=== PATIENT | female | born 1945 | race Caucasian/White ===

== ENCOUNTER → 2016-08-30 | Outpatient (CLI) | payer MEDICARE | LOC: OD 13:03 | PROVIDERS: ATTEND Internal Medicine | DX: E53.9 Vitamin B deficiency, unspecified (principal) | CPT/HCPCS: 36415; 82607 ==

== ENCOUNTER → 2016-12-15 | Outpatient (CLI) | payer MEDICARE ==
[2016-12-15 11:20] LABS: ABSOLUTE BASOPHILS # (AUTO) 0.1 10^3/uL (0.0-0.2); ABSOLUTE EOSINOPHILS # (AUTO) 0.5 10^3/uL (0.0-0.6); ABSOLUTE LYMPHOCYTES (AUTO) 3.1 10^3/uL (0.5-4.7); ABSOLUTE MONOCYTES (AUTO) 0.6 10^3/uL (0.1-1.4); BASOPHILS % (AUTO) 0.8 % (0-2); EOSINOPHILS % (AUTO) 4.5 % (0-6); HEMATOCRIT 37.9 % (36.0-47.0); HEMOGLOBIN 12.7 g/dL (12.0-15.5); HGB HCT DIFFERENCE 0.2; LYMPHOCYTES % (AUTO) 29.9 % (13-45); MEAN CORPUSCULAR HEMOGLOBIN 30.2 pg (27.0-33.4); MEAN CORPUSCULAR HGB CONC 33.5 g/dL (32.0-36.0); MEAN CORPUSCULAR VOLUME 90 fl (80-97); RED BLOOD COUNT 4.22 10^6/uL (3.72-5.28); SEGMENTED NEUTROPHILS % (AUTO) 58.8 % (42-78); WHITE BLOOD COUNT 10.3 10^3/uL (4.0-10.5)
[2016-12-15 12:09] LABS: ERYTHROCYTE SEDIMENTATION RATE 24 mm/hr (0-30)
[2016-12-15 12:34] LABS: C-REACTIVE PROTEIN < 5.0 mg/L (<10.0)
[2016-12-22 13:40] LABS: HLA B 27 DISEASE ASSOCIATION Negative (.)
== END ==
LOC: OD 10:09
PROVIDERS: ATTEND Physician Assistant
DX: M25.50 Pain in unspecified joint (principal); G89.4 Chronic pain syndrome
CPT/HCPCS: 36415; 82607; 82652; 85025; 85652; 86038; 86140; 86430; 86812

== ENCOUNTER → 2017-12-28 | Outpatient (CLI) | payer MEDICARE ==
[2017-12-28 12:12] LABS: ALANINE AMINOTRANSFERASE 39 U/L (9-52); ALBUMIN 4.6 g/dL (3.5-5.0); ALKALINE PHOSPHATASE 80 U/L (38-126); ASPARTATE AMINO TRANSFERASE 29 U/L (14-36); BILIRUBIN,DIRECT 0.5 mg/dL (0.0-0.4); BILIRUBIN,TOTAL 0.5 mg/dL (0.2-1.3); CHOLESTEROL 308.26 mg/dL (0-200); TOTAL PROTEIN 7.7 g/dL (6.3-8.2); TRIGLYCERIDES 453 mg/dL (<150)
[2017-12-28 12:23] LABS: DIRECT LDL 143 mg/dL (<100)
== END ==
LOC: OD 10:54
PROVIDERS: ATTEND Specialist
DX: I10 Essential (primary) hypertension (principal); E78.5 Hyperlipidemia, unspecified; R01.1 Cardiac murmur, unspecified; K21.9 Gastro-esophageal reflux disease without esophagitis; F33.0 Major depressive disorder, recurrent, mild; F41.9 Anxiety disorder, unspecified; G89.4 Chronic pain syndrome; I35.1 Nonrheumatic aortic (valve) insufficiency; Z79.899 Other long term (current) drug therapy
CPT/HCPCS: 36415; 80061; 80076

== ENCOUNTER 2018-08-26 20:34 | Inpatient (IN) | payer MEDICARE ==
[2018-08-26 21:53] LABS: ABSOLUTE LYMPHOCYTES (AUTO) 1.1 10^3/uL (0.5-4.7); ABSOLUTE MONOCYTES (AUTO) 2.3 10^3/uL (0.1-1.4); ABSOLUTE NEUT (AUTO) 16.3 10^3/uL (1.7-8.2); BASOPHILS % (AUTO) 0.2 % (0-2); HEMOGLOBIN 13.3 g/dL (12.0-15.5); LYMPHOCYTES % (AUTO) 5.5 % (13-45); MEAN CORPUSCULAR HEMOGLOBIN 28.6 pg (27.0-33.4); MEAN CORPUSCULAR VOLUME 84 fl (80-97); MONOCYTES % (AUTO) 11.6 % (3-13); PLATELET COUNT 361 10^3/uL (150-450); RED BLOOD COUNT 4.63 10^6/uL (3.72-5.28); RED CELL DISTRIBUTION WIDTH 13.8 % (11.5-14.0); SEGMENTED NEUTROPHILS % (AUTO) 82.7 % (42-78); TOTAL CELLS COUNTED % (AUTO) 100 %; WHITE BLOOD COUNT 19.7 10^3/uL (4.0-10.5)
[2018-08-26 22:02] LABS: ALANINE AMINOTRANSFERASE 21 U/L (9-52); ALBUMIN 4.6 g/dL (3.5-5.0); ALKALINE PHOSPHATASE 92 U/L (38-126); ANION GAP 13 (5-19); ASPARTATE AMINO TRANSFERASE 21 U/L (14-36); BILIRUBIN,DIRECT 0.4 mg/dL (0.0-0.4); BILIRUBIN,TOTAL 0.7 mg/dL (0.2-1.3); BLOOD UREA NITROGEN 20 mg/dL (7-20); CALCIUM 9.8 mg/dL (8.4-10.2); CARBON DIOXIDE 26 mmol/L (22-30); CHLORIDE 95 mmol/L (98-107); CREATINE KINASE 63 U/L (30-135); GLUCOSE 129 mg/dL (75-110); LIPASE 23.2 U/L (23-300); POTASSIUM 4.6 mmol/L (3.6-5.0); SODIUM 134.3 mmol/L (137-145); TOTAL PROTEIN 7.4 g/dL (6.3-8.2)
[2018-08-26 22:14] LABS: CREATINE KINASE MB < 0.22 ng/mL (<4.55); TROPONIN I < 0.012 ng/mL
--- NOTE | 2018-08-26 22:27 | RADIOLOGY REPORT (SQ) ---
EXAM DESCRIPTION: XR CHEST 1 VIEW COMPLETED DATE/TME: 08/26/2018 21:26 CLINICAL HISTORY: 73 years, Female, SOB, epigastric abdominal pain COMPARISON: 10/14/2015 chest NUMBER OF VIEWS: 1 TECHNIQUE: Portable chest LIMITATIONS: None. FINDINGS: The heart size is normal. Elevation right hemidiaphragm. Scarring left lung base. Old right rib fractures. No pneumothorax. Lungs are otherwise clear IMPRESSION: No acute cardiopulmonary process copyright 2010 [employer]- All Rights Reserved
[2018-08-26] MEDS ORDERED: HYDROMORPHONE HCL INJ/PF 2 MG/ML AMPULE IV ONE (22:47)
--- NOTE | 2018-08-27 00:03 | RADIOLOGY REPORT (SQ) ---
EXAM DESCRIPTION: CT ABDOMEN PELVIS WITH IV CONTRAST COMPLETED DATE/TME: 08/26/2018 23:11 CLINICAL HISTORY: 73 years, Female, diffuse abd pain COMPARISON: 10/15/2015 CT TECHNIQUE: [id number] Images stored on PACS. All CT scanners at this facility use dose modulation, iterative reconstruction, and/or weight based dosing when appropriate to reduce radiation dose to as low as reasonably achievable (ALARA). [facility]: Dose Right [facility]: CareDose [facility]: Dose Right [facility]: Teradose 4D [facility]: [employer] LIMITATIONS: None. FINDINGS: Limited evaluation of the lung bases shows scarring in the posterior right lung base. Osseous structures are grossly intact. The liver, spleen, adrenal glands, pancreas, right kidney are unremarkable. Left perinephric inflammatory changes with heterogeneity of the left kidney concerning for pyelonephritis. The gallbladder is present. No gross evidence for bowel obstruction. No free air or free fluid. The appendix is not well seen however there is no pericecal inflammation to suggest acute appendicitis. IMPRESSION: Findings concerning for left-sided pyelonephritis. Correlate with patient history. TECHNICAL DOCUMENTATION: Quality ID # 436: Final reports with documentation of one or more dose reduction techniques (e.g., Automated exposure control, adjustment of the mA and/or kV according to patient size, use of iterative reconstruction technique) copyright 2011 [id number]- All Rights Reserved
[2018-08-27 00:08] LABS: APPEARANCE,URINE SLIGHTLY-CLOUDY; BILIRUBIN,URINE NEGATIVE (NEGATIVE); COLOR,URINE YELLOW; GLUCOSE, URINE NEGATIVE (NEGATIVE); KETONES,URINE TRACE mg/dL (NEGATIVE); LEUKOCYTE ESTERASE,URINE NEGATIVE (NEGATIVE); NITRITE,URINE NEGATIVE (NEGATIVE); PROTEIN,URINE 100 mg/dL (NEGATIVE); URINE SPECIFIC GRAVITY 1.014
[2018-08-27] MEDS ORDERED: CEFTRIAXONE 1 GM/D5W RTU 1 GM/50 ML RTUPB IV ONE (00:21)
[2018-08-27] MEDS ORDERED: ACETAMINOPHEN 325 MG TABLET PO ONE (00:22)
[2018-08-27] MEDS ORDERED: MAGNESIUM HYDROXIDE SUSP 30 ML UDCUP PO PRN (00:57)
[2018-08-27] MEDS ORDERED: IPRATROPIUM/ALBUTEROL 0.5-2.5 MG/3 ML AMPUL NEB PRN (00:57)
[2018-08-27] MEDS ORDERED: NORMAL SALINE 1000 ML 1,000 ML IV PRN (01:00)
--- NOTE | 2018-08-27 01:01 | ER Document Report ---
Entered by SHON MAYNARD SCRIBE 08/26/[id number] Acting as scribe for:ANNA GODOY DO ED General - General Chief Complaint: Shortness Of Breath Stated Complaint: FEVER Time Seen by Provider: 08/26/18 21:00 Primary Care Provider: TEZ CAMPOS MD [Primary Care Provider] - Follow up as needed Mode of Arrival: Ambulatory Information source: Patient Notes: Patient is a 71-year-old female with HTN, COPD presents to the emergency departm ent complaining of epigastric abdominal pain onset yesterday. Patient states that she went to urgent care yesterday complaining of abdominal pain and shortness of breath they directed her to come to the emergency department in suspicion of pancreatitis. Patient states that she has had pancreatitis before and that her current pain feels similar but not as severe. Patient states her pain radiates into her back and further complains of decreased appetite, diarrhea (1 episode today) and nausea. She describes her shortness of breath as not being able to take an adequate breath. She denies any abdominal surgeries. They did prescribe her Zofran and Levaquin. Patient is not sure what they were treating. TRAVEL OUTSIDE OF THE [place] IN LAST 30 DAYS: No - Related Data Allergies/Adverse Reactions: No Known Allergies Allergy (Verified 04/17/13 10:58) Past Medical History - General Information source: Patient - Social History Smoking Status: Never Smoker Chew tobacco use (# tins/day): No Frequency of alcohol use: None Drug Abuse: None Family History: Reviewed & Not Pertinent Patient has suicidal ideation: No Patient has homicidal ideation: No - Past Medical History Cardiac Medical History: Reports: Hx Hypercholesterolemia, Hx Hypertension Psychiatric Medical History: Reports: Hx Anxiety, Hx Depression - Immunizations Hx Diphtheria, Pertussis, Tetanus Vaccination: Yes Hx Pneumococcal Vaccination: 08/06/11 Review of Systems - Review of Systems Constitutional: No symptoms reported EENT: No symptoms reported Cardiovascular: No symptoms reported Respiratory: See HPI, Short of breath Gastrointestinal: No symptoms reported, Abdominal pain, Diarrhea, Nausea Genitourinary: No symptoms reported Female Genitourinary: No symptoms reported Musculoskeletal: See HPI Skin: No symptoms reported Hematologic/Lymphatic: No symptoms reported Neurological/Psychological: No symptoms reported Physical Exam - Vital signs Vitals: Resp Pulse Ox 21 H 92 08/26/18 20:45 08/26/18 20:45 - Notes Notes: GENERAL: Alert, interacts well. Febrile, appears mildly uncomfortable HEAD: Normocephalic, atraumatic. EYES: Pupils equal, round, and reactive to light. Extraocular movements intact. ENT: Oral mucosa moist, tongue midline. NECK: Full range of motion. Supple. Trachea midline. LUNGS: Crackles in the bilateral bases and mid 3rd lung zone on the right. No respiratory distress. HEART: Regular rate and rhythm. No murmurs, gallops, or rubs. ABDOMEN: Soft, diffuse tenderness to palpation. Positive Vasquez's sign. Non- distended. Bowel sounds present in all 4 quadrants. EXTREMITIES: Moves all 4 extremities spontaneously. No edema, radial and dorsalis pedis pulses 2/4 bilaterally. No cyanosis. NEUROLOGICAL: Alert and oriented x3. Normal speech. PSYCH: Normal affect, normal mood. SKIN: Warm, dry, normal turgor. No rashes or lesions noted. BACK: No bruising. Course - Re-evaluation Re-evalutation: 08/27/18 00:59 CBC shows leukocytosis of 19.7, CMP shows slightly low GFR otherwise unremarkable, cardiac enzymes negative, lipase normal, urinalysis shows trace ketones and small blood but no signs of infection however she did start taking Levaquin yesterday. Chest x-ray shows old right rib fractures but no acute cardiopulmonary process, CT scan of the abdomen pelvis shows left-sided perinephric stranding consistent with pyelonephritis. Given her fever, her leukocytosis and her CAT scan results I suspect that she does truly have py elonephritis and her urine is negative because she has already had 1-2 doses of Levaquin. Patient will be admitted for IV Rocephin, discussed with Dr. Sotelo and he is in agreement with the plan, we are sending a second urine in case there was any problem with labeling in the emergency department or in the lab. - Vital Signs Vital signs: Temp Pulse Resp BP Pulse Ox 102.4 F H 17 139/58 H 92 08/27/18 00:19 08/27/18 00:01 08/27/18 00:01 08/27/18 00:01 - Laboratory Result Diagrams: 08/26/18 21:02 08/26/18 21:02 Laboratory results interpreted by me: 08/26/18 08/26/1819 21:02 21:02 23:39 WBC 19.7 H Seg Neutrophils % 82.7 H Lymphocytes % 5.5 L Absolute Neutrophils 16.3 H Absolute Monocytes 2.3 H Sodium 134.3 L Chloride 95 L Est GFR (Non-Af Amer) 52 L Glucose 129 H Urine Protein 100 H Urine Ketones TRACE H Urine Blood SMALL H Urine Urobilinogen 4.0 H Discharge - Discharge Clinical Impression: Pyelonephritis Condition: Fair Disposition: ADMITTED INPATIENT Admitting Provider: [facility] Admitted: Telemetry Referrals: TEZ CAMPOS MD [Primary Care Provider] - Follow up as needed Scribe Attestation: 08/27/18 01:00 I personally performed the services described in the documentation, reviewed and edited the documentation which was dictated to the scribe in my presence, and it accurately records my words and actions. I personally performed the services described in the documentation, reviewed and edited the documentation which was dictated to the scribe in my presence, and it accurately records my words and actions.
[2018-08-27] MEDS ORDERED: SULFAMETHOX/TRIMETH 800-160 MG/10 ML VIAL IV PRN (01:10)
--- NOTE | 2018-08-27 04:23 | PDOC H&P ---
History of Present Illness Admission Date/PCP: 08/27/18 01:11 TEZ CAMPOS MD Patient complains of: Right-sided abdominal pain History of Present Illness: BONILLA VAZQUEZ is a 73 year old female with a past medical history of hypertension, COPD, recurrent C. difficile colitis who presents with 48 hours of abdominal pain prompting evaluation at urgent care she was placed on Levaquin for urinary tract infection without significant improvement she reports the emergency room findings leukocytosis and a CT abdomen pelvis notable for right- sided perinephric stranding suggestive of pyelonephritis. She is started on Rocephin and referred to the hospitalist for admission. Patient admits subjective fever, abdominal pain, polyuria and a single episode of diarrhea. Past Medical History Cardiac Medical History: Reports: Hyperlipidema, Hypertension Neurological Medical History: Denies: Seizures Psychiatric Medical History: Reports: Depression Past Surgical History Past Surgical History: Denies: Hysterectomy Social History Information Source: Patient Lives with: Family Smoking Status: Never Smoker Frequency of Alcohol Use: None Hx Recreational Drug Use: No Drugs: None Hx Prescription Drug Abuse: No - Advance Directive Resuscitation Status: Full Code Family History Family History: Hypertension Parental Family History Reviewed: Yes Children Family History Reviewed: Yes Sibling(s) Family History Reviewed.: Yes Medication/Allergy Home Medications: Hydrocodone Bit/Acetaminophen [Hydrocodon-Acetaminophen 5-325] 2 each PO Q4H PRN 04/17/13 Potassium Chloride 10 meq PO BID 04/17/13 Fesoterodine Fumarate [Toviaz] 4 mg PO DAILY 09/08/15 Lisinopril 40 mg PO DAILY 09/08/15 Alprazolam [Xanax 0.25 mg Tablet] 0.25 mg PO Q8HP PRN #0 tablet 09/12/15 Amlodipine Besylate [Norvasc 5 mg Tablet] 5 mg PO Q12 #0 tablet 09/12/15 Citalopram Hydrobromide [Celexa 20 mg Tablet] 20 mg PO DAILY #0 tablet 09/12/15 Simvastatin [Zocor 5 mg Tablet] 5 mg PO DAILY 10/15/15 Metronidazole [Flagyl 500 mg Tablet] 500 mg PO Q6 #0 tablet 10/27/15 Allergies/Adverse Reactions: No Known Allergies Allergy (Verified 04/17/13 10:58) Review of Systems Constitutional: ABSENT: chills, fever(s), headache(s), weight gain, weight loss Eyes: ABSENT: visual disturbances Ears: ABSENT: hearing changes Cardiovascular: ABSENT: chest pain, dyspnea on exertion, edema, orthropnea, palpitations Respiratory: ABSENT: cough, hemoptysis Gastrointestinal: ABSENT: abdominal pain, constipation, diarrhea, hematemesis, hematochezia, nausea, vomiting Genitourinary: ABSENT: dysuria, hematuria Musculoskeletal: ABSENT: joint swelling Integumentary: ABSENT: rash, wounds Neurological: ABSENT: abnormal gait, abnormal speech, confusion, dizziness, focal weakness, syncope Psychiatric: ABSENT: anxiety, depression, homidical ideation, suicidal ideation Endocrine: ABSENT: cold intolerance, heat intolerance, polydipsia, polyuria Hematologic/Lymphatic: ABSENT: easy bleeding, easy bruising Physical Exam Vital Signs: Temp Pulse Resp BP Pulse Ox 98.3 F 13 125/59 L 94 08/27/18 02:31 08/27/18 03:01 08/27/18 03:01 08/27/18 03:01 Intake & Output 08/25/18 08/26/18 08/27/18 11:59 11:59 11:59 Intake Total 1050 Balance 1050 Weight 63.957 kg General appearance: PRESENT: mild distress, well-developed, well-nourished Head exam: PRESENT: atraumatic, normocephalic Eye exam: PRESENT: conjunctiva pink, EOMI, PERRLA. ABSENT: scleral icterus Ear exam: PRESENT: normal external ear exam Mouth exam: PRESENT: moist, tongue midline Neck exam: ABSENT: carotid bruit, JVD, lymphadenopathy, thyromegaly Respiratory exam: PRESENT: tachypnea. ABSENT: rales, rhonchi, wheezes Cardiovascular exam: PRESENT: RRR. ABSENT: diastolic murmur, rubs, systolic murmur Pulses: PRESENT: normal dorsalis pedis pul Vascular exam: PRESENT: normal capillary refill GI/Abdominal exam: PRESENT: hyperactive bowel sounds, normal bowel sounds, soft, tenderness - Right flank pain. ABSENT: distended, guarding, mass, organolmegaly, rebound Rectal exam: PRESENT: deferred Extremities exam: PRESENT: full ROM. ABSENT: calf tenderness, clubbing, pedal edema Neurological exam: PRESENT: alert, awake, oriented to person, oriented to place, oriented to time, oriented to situation, CN II-XII grossly intact. ABSENT: motor sensory deficit Psychiatric exam: PRESENT: appropriate affect, normal mood. ABSENT: homicidal ideation, suicidal ideation Skin exam: PRESENT: dry, intact, warm. ABSENT: cyanosis, rash Results Laboratory Results: 08/26/18 21:02 08/26/18 21:02 08/26/18 08/26/18 08/26/18 21:02 21:02 23:39 WBC 19.7 H RBC 4.63 Hgb 13.3 Hct 39.0 MCV 84 MCH 28.6 MCHC 34.0 RDW 13.8 Plt Count 361 Seg Neutrophils % 82.7 H Lymphocytes % 5.5 L Monocytes % 11.6 Eosinophils % 0.0 Basophils % 0.2 Absolute Neutrophils 16.3 H Absolute Lymphocytes 1.1 Absolute Monocytes 2.3 H Absolute Eosinophils 0.0 Absolute Basophils 0.0 Sodium 134.3 L Potassium 4.6 Chloride 95 L Carbon Dioxide 26 Anion Gap 13 BUN 20 Creatinine 1.05 Est GFR ( Amer) > 60 Est GFR (Non-Af Amer) 52 L Glucose 129 H Calcium 9.8 Total Bilirubin 0.7 AST 21 ALT 21 Alkaline Phosphatase 92 Total Protein 7.4 Albumin 4.6 Lipase 23.2 Urine Color YELLOW Urine Appearance SLIGHTLY-CLOUDY Urine pH 6.0 Ur Specific [place] 1.014 Urine Protein 100 H Urine Glucose (UA) NEGATIVE Urine Ketones TRACE H Urine Blood SMALL H Urine Nitrite NEGATIVE Ur Leukocyte Esterase NEGATIVE Urine WBC (Auto) 16 Urine RBC (Auto) 3 08/26/18 08/26/18 21:02 21:02 Creatine Kinase 63 CK-MB (CK-2) < 0.22 Troponin I < 0.012 Impressions: Chest X-Ray 08/26/18 21:26 IMPRESSION: No acute cardiopulmonary process copyright 2011 [employer]- All Rights Reserved Abdomen/Pelvis CT 08/26/18 23:11 IMPRESSION: Findings concerning for left-sided pyelonephritis. Correlate with patient history. TECHNICAL DOCUMENTATION: Quality ID # [id number]: Final reports with documentation of one or more dose reduction techniques (e.g., Automated exposure control, adjustment of the mA and/or kV according to patient size, use of iterative reconstruction technique) copyright 2011 [employer]- All Rights Reserved Assessment & Plan - Diagnosis (1) Pyelonephritis Is this a current diagnosis for this admission?: Yes Plan: No evidence for hydronephrosis or stone. IV fluid challenge, patient has a history of Klebsiella pneumonia sensitive to Bactrim. Bactrim ordered given reduced probability of developing C. difficile colitis. Follow-up urine, blood culture and CBC (2) History of Clostridium difficile colitis Is this a current diagnosis for this admission?: Yes Plan: High risk for redevelopment on antibiotics especially following Levaquin and Rocephin. Follow-up CBC and C. difficile screen
[2018-08-27] MEDS: SULFAMETHOXAZOLE/TRIMETHOPRIM 480 MG in DEXTROSE 5%-WATER 1000 ML 750 ML IV SCH ×3 (05:41→18:09)
[2018-08-27] MEDS: HEPARIN SOD (PORCINE) 5,000 UNIT/ML 1 ML SYRINGE SUBCUT SCH ×3 (05:41→23:06)
[2018-08-27 07:46] LABS: APPEARANCE,URINE SLIGHTLY-CLOUDY; BILIRUBIN,URINE NEGATIVE (NEGATIVE); COLOR,URINE YELLOW; GLUCOSE, URINE NEGATIVE (NEGATIVE); KETONES,URINE NEGATIVE (NEGATIVE); LEUKOCYTE ESTERASE,URINE NEGATIVE (NEGATIVE); NITRITE,URINE NEGATIVE (NEGATIVE); PROTEIN,URINE 30 mg/dL (NEGATIVE); URINE SPECIFIC GRAVITY 1.039
--- NOTE | 2018-08-27 07:54 | EKG REPORT ---
SEVERITY:- BORDERLINE ECG - SINUS RHYTHM BORDERLINE LEFT AXIS DEVIATION BORDERLINE T ABNORMALITIES, ANTERIOR LEADS : Confirmed by: Christiana Mazariegos MD 27-Aug-2018 07:53:53
[2018-08-27 08:04] LABS: ABSOLUTE LYMPHOCYTES (AUTO) 1.2 10^3/uL (0.5-4.7); ABSOLUTE MONOCYTES (AUTO) 1.1 10^3/uL (0.1-1.4); ABSOLUTE NEUT (AUTO) 12.5 10^3/uL (1.7-8.2); BASOPHILS % (AUTO) 0.1 % (0-2); HEMATOCRIT 34.8 % (36.0-47.0); HEMOGLOBIN 11.8 g/dL (12.0-15.5); LYMPHOCYTES % (AUTO) 7.9 % (13-45); MEAN CORPUSCULAR HEMOGLOBIN 28.4 pg (27.0-33.4); MEAN CORPUSCULAR VOLUME 84 fl (80-97); MONOCYTES % (AUTO) 7.8 % (3-13); PLATELET COUNT 293 10^3/uL (150-450); RED BLOOD COUNT 4.16 10^6/uL (3.72-5.28); RED CELL DISTRIBUTION WIDTH 13.6 % (11.5-14.0); SEGMENTED NEUTROPHILS % (AUTO) 84.2 % (42-78); TOTAL CELLS COUNTED % (AUTO) 100 %; WHITE BLOOD COUNT 14.8 10^3/uL (4.0-10.5)
[2018-08-27 08:24] LABS: ANION GAP 11 (5-19); BLOOD UREA NITROGEN 17 mg/dL (7-20); CALCIUM 8.6 mg/dL (8.4-10.2); CARBON DIOXIDE 25 mmol/L (22-30); CHLORIDE 100 mmol/L (98-107); GLUCOSE 200 mg/dL (75-110); SODIUM 136.2 mmol/L (137-145)
[2018-08-27 08:34] LABS: POTASSIUM 3.6 mmol/L (3.6-5.0)
--- NOTE | 2018-08-27 09:50 | PDOC PROGRESS REPORT ---
Subjective Progress Note for:: 08/27/18 Subjective:: 08/27/[id number]-ecad-old female with history of recurrent C. difficile came in with urinary symptoms of abdominal pain CT abdomen shows left-sided pyelonephritis. C. difficile report is pending. Patient is presently on Bactrim. Febrile. No acute events since the admission. Reason For Visit: UTI, ABD PAIN Physical Exam Vital Signs: Temp Pulse Resp BP Pulse Ox 98.3 F 15 118/54 L 92 08/27/18 02:31 08/27/18 07:01 08/27/18 07:01 08/27/18 07:01 Intake & Output 08/26/18 08/27/18 08/28/18 06:59 06:59 06:59 Intake Total 1050 Balance 1050 Weight 63.7 kg General appearance: PRESENT: no acute distress Head exam: PRESENT: atraumatic Eye exam: PRESENT: PERRLA Mouth exam: PRESENT: moist Neck exam: ABSENT: carotid bruit, JVD, lymphadenopathy, thyromegaly Respiratory exam: PRESENT: clear to auscultation christina. ABSENT: rales, rhonchi, wheezes Cardiovascular exam: PRESENT: RRR. ABSENT: diastolic murmur, rubs, systolic murmur GI/Abdominal exam: PRESENT: normal bowel sounds, soft. ABSENT: distended, guarding, mass, organolmegaly, rebound, tenderness Extremities exam: PRESENT: full ROM. ABSENT: calf tenderness, clubbing, pedal edema Neurological exam: PRESENT: alert, awake, oriented to person, oriented to place, oriented to time, oriented to situation, CN II-XII grossly intact. ABSENT: motor sensory deficit Results Laboratory Results: 08/27/18 07:52 08/27/18 07:52 08/26/18 08/26/18 08/26/18 21:02 21:02 23:39 WBC 19.7 H RBC 4.63 Hgb 13.3 Hct 39.0 MCV 84 MCH 28.6 MCHC 34.0 RDW 13.8 Plt Count 361 Seg Neutrophils % 82.7 H Lymphocytes % 5.5 L Monocytes % 11.6 Eosinophils % 0.0 Basophils % 0.2 Absolute Neutrophils 16.3 H Absolute Lymphocytes 1.1 Absolute Monocytes 2.3 H Absolute Eosinophils 0.0 Absolute Basophils 0.0 Sodium 134.3 L Potassium 4.6 Chloride 95 L Carbon Dioxide 26 Anion Gap 13 BUN 20 Creatinine 1.05 Est GFR ( Amer) > 60 Est GFR (Non-Af Amer) 52 L Glucose 129 H Calcium 9.8 Total Bilirubin 0.7 AST 21 ALT 21 Alkaline Phosphatase 92 Total Protein 7.4 Albumin 4.6 Lipase 23.2 Urine Color YELLOW Urine Appearance SLIGHTLY-CLOUDY Urine pH 6.0 Ur Specific [place] 1.014 Urine Protein 100 H Urine Glucose (UA) NEGATIVE Urine Ketones TRACE H Urine Blood SMALL H Urine Nitrite NEGATIVE Ur Leukocyte Esterase NEGATIVE Urine WBC (Auto) 16 Urine RBC (Auto) 3 08/27/18 08/27/18 08/27/18 06:45 07:52 07:52 WBC 14.8 H RBC 4.16 Hgb 11.8 L Hct 34.8 L MCV 84 MCH 28.4 MCHC 34.0 RDW 13.6 Plt Count 293 Seg Neutrophils % 84.2 H Lymphocytes % 7.9 L Monocytes % 7.8 Eosinophils % 0.0 Basophils % 0.1 Absolute Neutrophils 12.5 H Absolute Lymphocytes 1.2 Absolute Monocytes 1.1 Absolute Eosinophils 0.0 Absolute Basophils 0.0 Sodium 136.2 L Potassium 3.6 D Chloride 100 Carbon Dioxide 25 Anion Gap 11 BUN 17 Creatinine 1.02 Est GFR ( Amer) > 60 Est GFR (Non-Af Amer) 53 L Glucose 200 H Calcium 8.6 Total Bilirubin AST ALT Alkaline Phosphatase Total Protein Albumin Lipase Urine Color YELLOW Urine Appearance SLIGHTLY-CLOUDY Urine pH 5.0 Ur Specific [place] 1.039 Urine Protein 30 H Urine Glucose (UA) NEGATIVE Urine Ketones NEGATIVE Urine Blood SMALL H Urine Nitrite NEGATIVE Ur Leukocyte Esterase NEGATIVE Urine WBC (Auto) 14 Urine RBC (Auto) 2 08/26/18 08/26/18 21:02 21:02 Creatine Kinase 63 CK-MB (CK-2) < 0.22 Troponin I < 0.012 Impressions: Chest X-Ray 08/26/18 21:26 IMPRESSION: No acute cardiopulmonary process copyright 2011 [employer]- All Rights Reserved Abdomen/Pelvis CT 08/26/18 23:11 IMPRESSION: Findings concerning for left-sided pyelonephritis. Correlate with patient history. TECHNICAL DOCUMENTATION: Quality ID # 436: Final reports with documentation of one or more dose reduction techniques (e.g., Automated exposure control, adjustment of the mA and/or kV according to patient size, use of iterative reconstruction technique) copyright 2010 [employer]- All Rights Reserved Assessment & Plan - Diagnosis (1) Pyelonephritis Is this a current diagnosis for this admission?: Yes Plan: 08/27/2018-CT abdomen and pelvis shows left-sided pyelonephritis but there is no evidence of renal stone or hydronephrosis. Patient has history of Klebsiella pneumonia sensitive to Bactrim presently she is on Bactrim. Stool for C. difficile is pending. Blood cultures urine cultures are pending. Patient is presently on IV fluids also. (2) History of Clostridium difficile colitis Is this a current diagnosis for this admission?: Yes Plan: 08/27/2018 patient history of recurrent C. difficile colitis. Presently she is on Bactrim. Waiting for the C. difficile culture report. Denies any loose stools prior to and during the hospital stay. (3) Acute renal failure Qualifiers: Acute renal failure type: unspecified Qualified Code(s): N17.9 - Acute kidney failure, unspecified Is this a current diagnosis for this admission?: Yes Plan: 08/27/2018-patient's baseline creatinine is around 2.42.5. Today it was 1.02. Most likely prerenal. She is getting IV fluids. Plan is to recheck the labs tomorrow. - Time Time Spent with patient: 15-24 minutes Medications reviewed and adjusted accordingly: Yes Anticipated discharge: Home
[2018-08-27] MEDS: CITALOPRAM HYDROBROMIDE 20 MG TABLET PO SCH (10:27)
[2018-08-27] MEDS: DOCUSATE SODIUM 100 MG CAPSULE PO SCH ×2 (10:27→18:09)
[2018-08-27] MEDS: AMLODIPINE BESYLATE 5 MG TABLET PO SCH ×2 (10:27→23:06)
[2018-08-27] MEDS: ACETAMINOPHEN 325 MG TABLET PO PRN (18:43)
[2018-08-27] MEDS: SIMVASTATIN 10 MG TABLET PO SCH (23:06)
[2018-08-27] MEDS: ALPRAZOLAM 0.25 MG TABLET PO PRN (23:13)
[2018-08-28] MEDS: SULFAMETHOXAZOLE/TRIMETHOPRIM 480 MG in DEXTROSE 5%-WATER 1000 ML 750 ML IV SCH ×4 (00:05→18:28)
[2018-08-28] MEDS ORDERED: KETOROLAC TROMETHAMINE INJ/PF 30 MG/1 ML SDV IV PRN (03:53)
[2018-08-28] MEDS: ONDANSETRON HCL INJ/PF 4 MG/2 ML SDV IV PRN ×2 (05:01→16:44)
[2018-08-28] MEDS: HEPARIN SOD (PORCINE) 5,000 UNIT/ML 1 ML SYRINGE SUBCUT SCH ×3 (05:01→21:33)
[2018-08-28 07:03] LABS: ABSOLUTE BASOPHILS # (AUTO) 0.1 10^3/uL (0.0-0.2); ABSOLUTE EOSINOPHILS # (AUTO) 0.1 10^3/uL (0.0-0.6); ABSOLUTE LYMPHOCYTES (AUTO) 1.4 10^3/uL (0.5-4.7); ABSOLUTE MONOCYTES (AUTO) 1.1 10^3/uL (0.1-1.4); ABSOLUTE NEUT (AUTO) 11.7 10^3/uL (1.7-8.2); BASOPHILS % (AUTO) 0.4 % (0-2); EOSINOPHILS % (AUTO) 0.5 % (0-6); HEMATOCRIT 35.5 % (36.0-47.0); HEMOGLOBIN 12.2 g/dL (12.0-15.5); LYMPHOCYTES % (AUTO) 9.8 % (13-45); MEAN CORPUSCULAR HEMOGLOBIN 28.2 pg (27.0-33.4); MEAN CORPUSCULAR HGB CONC 34.3 g/dL (32.0-36.0); MEAN CORPUSCULAR VOLUME 82 fl (80-97); MONOCYTES % (AUTO) 7.6 % (3-13); RED BLOOD COUNT 4.32 10^6/uL (3.72-5.28); RED CELL DISTRIBUTION WIDTH 13.7 % (11.5-14.0); SEGMENTED NEUTROPHILS % (AUTO) 81.7 % (42-78); TOTAL CELLS COUNTED % (AUTO) 100 %; WHITE BLOOD COUNT 14.3 10^3/uL (4.0-10.5)
[2018-08-28 07:29] LABS: ANION GAP 13 (5-19); BLOOD UREA NITROGEN 11 mg/dL (7-20); CALCIUM 9.1 mg/dL (8.4-10.2); CARBON DIOXIDE 23 mmol/L (22-30); CHLORIDE 101 mmol/L (98-107); GLUCOSE 180 mg/dL (75-110); POTASSIUM 3.5 mmol/L (3.6-5.0); SODIUM 137.1 mmol/L (137-145)
[2018-08-28 08:13] LABS: PLATELET COUNT 286 10^3/uL (150-450)
[2018-08-28] MEDS: DOCUSATE SODIUM 100 MG CAPSULE PO SCH ×2 (10:36→18:27)
[2018-08-28] MEDS: AMLODIPINE BESYLATE 5 MG TABLET PO SCH ×2 (10:36→22:22)
[2018-08-28] MEDS: CITALOPRAM HYDROBROMIDE 20 MG TABLET PO SCH (10:36)
[2018-08-28] MEDS: LANSOPRAZOLE 30 MG TAB.RAP.DR PO SCH (12:05)
[2018-08-28] MEDS ORDERED: ESTRADIOL 0.1 MG TOP SCH (17:15)
[2018-08-28] MEDS ORDERED: POLYETHYLENE GLYCOL 3350 POWDER 17 GM/1 PACKET PO PRN (17:27)
--- NOTE | 2018-08-28 17:29 | PDOC PROGRESS REPORT ---
Subjective Progress Note for:: 08/28/18 Subjective:: 08/27/[id number]-tnuo-old female with history of recurrent C. difficile came in with urinary symptoms of abdominal pain CT abdomen shows left-sided pyelonephritis. C. difficile report is pending. Patient is presently on Bactrim. Febrile. No acute events since the admission. 08/28/2018-patient was admitted with UTI found to have left-sided pyelonephritis. No obstruction no stones was noticed in the CT scan. Patient is continued to have nausea and vomitings. T-max is 99.0. Reason For Visit: UTI, ABD PAIN Physical Exam Vital Signs: Temp Pulse Resp BP Pulse Ox 99.0 F 81 15 137/61 H 96 08/28/18 15:20 08/28/18 15:20 08/28/18 15:20 08/28/18 15:20 08/28/18 15:20 Intake & Output 08/27/18 08/28/18 08/29/18 06:59 06:59 06:59 Intake Total 1050 3844 750 Output Total 2150 Balance 1050 1694 750 Weight 63.7 kg 67 kg General appearance: PRESENT: no acute distress Head exam: PRESENT: atraumatic Eye exam: PRESENT: PERRLA Mouth exam: PRESENT: dry mucosa Neck exam: ABSENT: carotid bruit, JVD, lymphadenopathy, thyromegaly Respiratory exam: PRESENT: clear to auscultation christina. ABSENT: rales, rhonchi, wheezes Cardiovascular exam: PRESENT: RRR. ABSENT: diastolic murmur, rubs, systolic murmur GI/Abdominal exam: PRESENT: normal bowel sounds, soft. ABSENT: tenderness Extremities exam: PRESENT: full ROM. ABSENT: calf tenderness, clubbing, pedal edema Neurological exam: PRESENT: alert, awake, oriented to person, oriented to place, oriented to time, oriented to situation, CN II-XII grossly intact. ABSENT: motor sensory deficit Psychiatric exam: PRESENT: appropriate affect, normal mood. ABSENT: homicidal ideation, suicidal ideation Results Laboratory Results: 08/28/18 06:26 08/28/18 06:26 08/28/18 08/28/18 06:26 06:26 WBC 14.3 H RBC 4.32 Hgb 12.2 Hct 35.5 L MCV 82 MCH 28.2 MCHC 34.3 RDW 13.7 Plt Count 286 Seg Neutrophils % 81.7 H Lymphocytes % 9.8 L Monocytes % 7.6 Eosinophils % 0.5 Basophils % 0.4 Absolute Neutrophils 11.7 H Absolute Lymphocytes 1.4 Absolute Monocytes 1.1 Absolute Eosinophils 0.1 Absolute Basophils 0.1 Sodium 137.1 Potassium 3.5 L Chloride 101 Carbon Dioxide 23 Anion Gap 13 BUN 11 Creatinine 0.96 Est GFR ( Amer) > 60 Est GFR (Non-Af Amer) 57 L Glucose 180 H Calcium 9.1 08/26/18 08/26/18 21:02 21:02 Creatine Kinase 63 CK-MB (CK-2) < 0.22 Troponin I < 0.012 Impressions: Chest X-Ray 08/26/18 21:26 IMPRESSION: No acute cardiopulmonary process copyright 2010 [employer]- All Rights Reserved Abdomen/Pelvis CT 08/26/18 23:11 IMPRESSION: Findings concerning for left-sided pyelonephritis. Correlate with patient history. TECHNICAL DOCUMENTATION: Quality ID # 436: Final reports with documentation of one or more dose reduction techniques (e.g., Automated exposure control, adjustment of the mA and/or kV according to patient size, use of iterative reconstruction technique) copyright 2010 [employer]- All Rights Reserved Assessment & Plan - Diagnosis (1) Pyelonephritis Is this a current diagnosis for this admission?: Yes Plan: 08/27/2018-CT abdomen and pelvis shows left-sided pyelonephritis but there is no evidence of renal stone or hydronephrosis. Patient has history of Klebsiella pneumonia sensitive to Bactrim presently she is on Bactrim. Stool for C. difficile is pending. Blood cultures urine cultures are pending. Patient is presently on IV fluids also. 08/28/2018-CT scan of the abdominal pelvis shows left-sided pyelonephritis. Patient is on Bactrim. She has also history of C. difficile. (2) History of Clostridium difficile colitis Is this a current diagnosis for this admission?: Yes Plan: 08/27/2018 patient history of recurrent C. difficile colitis. Presently she is on Bactrim. Waiting for the C. difficile culture report. Denies any loose stools prior to and during the hospital stay. 08/28/2018 patient has history of recurrent C. difficile colitis. Patient does not have any bowel movement since admission. going to give some miralax (3) Acute renal failure Qualifiers: Acute renal failure type: unspecified Qualified Code(s): N17.9 - Acute kidney failure, unspecified Is this a current diagnosis for this admission?: Yes Plan: 08/27/2018-patient's baseline creatinine is around 2.45. Today it was 1.02. Most likely prerenal. She is getting IV fluids. Plan is to recheck the labs tomorrow. 08/28/2018-patient's admission creatinine is 2.42, today's creatinine is 0.96. Acute kidney injury which is prerenal is resolved. - Time Time Spent with patient: 15-24 minutes Medications reviewed and adjusted accordingly: Yes Anticipated discharge: Home
[2018-08-28] MEDS: GABAPENTIN 300 MG CAPSULE PO SCH (21:33)
[2018-08-28] MEDS: ATORVASTATIN CALCIUM 40 MG TABLET PO SCH (21:33)
[2018-08-28] MEDS: HYDROCODONE/ACETAMINOPHEN 10-325 MG TABLET PO PRN (21:34)
[2018-08-28] MEDS: SIMVASTATIN 10 MG TABLET PO SCH (21:34)
[2018-08-28] MEDS: HYDROXYZINE PAMOATE 50 MG CAPSULE PO SCH (21:34)
[2018-08-28] MEDS ORDERED: (PENDING PHARMACY ID) (Rosuvastatin Calcium [Crestor 20 Mg Tablet] 20 MG) PO SCH (22:00)
[2018-08-28] MEDS ORDERED: BACITRACIN ZINC OINTMENT 15 GM TP PRN (22:00)
[2018-08-29] MEDS: SULFAMETHOXAZOLE/TRIMETHOPRIM 480 MG in DEXTROSE 5%-WATER 1000 ML 750 ML IV SCH ×4 (00:07→18:04)
[2018-08-29] MEDS: GABAPENTIN 300 MG CAPSULE PO SCH ×3 (06:19→22:29)
[2018-08-29] MEDS: LANSOPRAZOLE 30 MG TAB.RAP.DR PO SCH (06:20)
[2018-08-29] MEDS: HYDROXYZINE PAMOATE 50 MG CAPSULE PO SCH ×3 (06:20→22:29)
[2018-08-29] MEDS: HEPARIN SOD (PORCINE) 5,000 UNIT/ML 1 ML SYRINGE SUBCUT SCH ×3 (06:20→22:29)
[2018-08-29 08:43] LABS: ABSOLUTE EOSINOPHILS # (AUTO) 0.4 10^3/uL (0.0-0.6); ABSOLUTE LYMPHOCYTES (AUTO) 1.8 10^3/uL (0.5-4.7); ABSOLUTE NEUT (AUTO) 9.4 10^3/uL (1.7-8.2); BASOPHILS % (AUTO) 0.2 % (0-2); EOSINOPHILS % (AUTO) 3.5 % (0-6); HEMATOCRIT 34.6 % (36.0-47.0); HEMOGLOBIN 12.2 g/dL (12.0-15.5); LYMPHOCYTES % (AUTO) 14.2 % (13-45); MEAN CORPUSCULAR HEMOGLOBIN 28.9 pg (27.0-33.4); MEAN CORPUSCULAR HGB CONC 35.1 g/dL (32.0-36.0); MEAN CORPUSCULAR VOLUME 82 fl (80-97); MONOCYTES % (AUTO) 7.8 % (3-13); PLATELET COUNT 364 10^3/uL (150-450); RED BLOOD COUNT 4.21 10^6/uL (3.72-5.28); SEGMENTED NEUTROPHILS % (AUTO) 74.3 % (42-78); TOTAL CELLS COUNTED % (AUTO) 100 %; WHITE BLOOD COUNT 12.6 10^3/uL (4.0-10.5)
--- NOTE | 2018-08-29 08:55 | RADIOLOGY REPORT (SQ) ---
EXAM DESCRIPTION: KUB/ABDOMEN (SINGLE VIEW) COMPLETED DATE/TIME: 08/29/2018 8:39 am REASON FOR STUDY: abd pain COMPARISON: CT abdomen pelvis 08/26/2018 KUB 10/18/2015, 10/17/2015, 10/16/2015 NUMBER OF VIEWS: One view. TECHNIQUE: Supine radiographic image of the abdomen acquired. LIMITATIONS: None. FINDINGS: BOWEL GAS PATTERN: Normal bowel gas pattern. No dilated loops. CALCIFICATIONS: Multiple right retroperitoneal calcified phleboliths. Pelvic calcified phleboliths. SOFT TISSUES: No gross mass or suggestion of organomegaly. HARDWARE: None in the abdomen. BONES: No acute fracture. No worrisome bone lesions. OTHER: No other significant finding. IMPRESSION: NO RADIOGRAPHIC EVIDENCE FOR ACUTE ABDOMINAL DISEASE. TECHNICAL DOCUMENTATION: JOB ID: [id number]- All Rights Reserved Reading location - IP/workstation name: [email or web address]
[2018-08-29 09:07] LABS: ALANINE AMINOTRANSFERASE 28 U/L (9-52); ALKALINE PHOSPHATASE 86 U/L (38-126); ANION GAP 16 (5-19); ASPARTATE AMINO TRANSFERASE 22 U/L (14-36); BILIRUBIN,DIRECT 0.2 mg/dL (0.0-0.4); BILIRUBIN,TOTAL 0.2 mg/dL (0.2-1.3); BLOOD UREA NITROGEN 8 mg/dL (7-20); CALCIUM 8.9 mg/dL (8.4-10.2); CARBON DIOXIDE 24 mmol/L (22-30); CHLORIDE 94 mmol/L (98-107); GLUCOSE 142 mg/dL (75-110); POTASSIUM 3.2 mmol/L (3.6-5.0); TOTAL PROTEIN 6.4 g/dL (6.3-8.2)
[2018-08-29] MEDS: HYDROCODONE/ACETAMINOPHEN 10-325 MG TABLET PO PRN (09:28)
[2018-08-29] MEDS: AMLODIPINE BESYLATE 5 MG TABLET PO SCH ×2 (09:28→22:30)
[2018-08-29] MEDS: CITALOPRAM HYDROBROMIDE 20 MG TABLET PO SCH (09:28)
[2018-08-29] MEDS: METOPROLOL TARTRATE 50 MG TABLET PO SCH (09:28)
[2018-08-29] MEDS: DOCUSATE SODIUM 100 MG CAPSULE PO SCH ×2 (09:28→18:04)
[2018-08-29] MEDS: ONDANSETRON HCL INJ/PF 4 MG/2 ML SDV IV PRN (09:36)
[2018-08-29] MEDS: ALPRAZOLAM 0.25 MG TABLET PO PRN (09:36)
[2018-08-29] MEDS ORDERED: AMLODIPINE BESYLATE 5 MG TABLET PO SCH (10:00)
[2018-08-29] MEDS ORDERED: CITALOPRAM HYDROBROMIDE 20 MG TABLET PO SCH (10:00)
--- NOTE | 2018-08-29 17:49 | PDOC PROGRESS REPORT ---
Subjective Progress Note for:: 08/29/18 Subjective:: 08/27/[id number]-jztk-old female with history of recurrent C. difficile came in with urinary symptoms of abdominal pain CT abdomen shows left-sided pyelonephritis. C. difficile report is pending. Patient is presently on Bactrim. Febrile. No acute events since the admission. 08/28/2018-patient was admitted with UTI found to have left-sided pyelonephritis. No obstruction no stones was noticed in the CT scan. Patient is continued to have nausea and vomitings. T-max is 99.0. 08/29/2018 patient is still complaining of nausea occasional vomiting's. Much better than yesterday. Temperature is 97.7. Reason For Visit: UTI, ABD PAIN Physical Exam Vital Signs: Temp Pulse Resp BP Pulse Ox 97.7 F 66 15 131/54 H 96 08/29/18 07:00 08/29/18 12:55 08/29/18 12:55 08/29/18 07:00 08/29/18 07:00 Intake & Output 08/28/18 08/29/18 08/30/18 06:59 06:59 06:59 Intake Total 3844 4000 2100 Output Total 2150 2275 300 Balance 1694 1725 1800 Weight 67 kg 63.6 kg General appearance: PRESENT: no acute distress Head exam: PRESENT: atraumatic Eye exam: PRESENT: PERRLA Neck exam: ABSENT: carotid bruit, JVD, lymphadenopathy, thyromegaly Respiratory exam: PRESENT: clear to auscultation christina. ABSENT: rales, rhonchi, wheezes Cardiovascular exam: PRESENT: RRR. ABSENT: diastolic murmur, rubs, systolic murmur GI/Abdominal exam: PRESENT: normal bowel sounds, soft. ABSENT: distended, guarding, mass, organolmegaly, rebound, tenderness Extremities exam: PRESENT: full ROM. ABSENT: calf tenderness, clubbing, pedal edema Neurological exam: PRESENT: alert, awake, oriented to person, oriented to place, oriented to time, oriented to situation, CN II-XII grossly intact. ABSENT: motor sensory deficit Psychiatric exam: PRESENT: appropriate affect, normal mood. ABSENT: homicidal ideation, suicidal ideation Results Laboratory Results: 08/29/18 08:10 08/29/18 08:10 08/29/18 08/29/18 08:10 08:10 WBC 12.6 H RBC 4.21 Hgb 12.2 Hct 34.6 L MCV 82 MCH 28.9 MCHC 35.1 RDW 14.0 Plt Count 364 Seg Neutrophils % 74.3 Lymphocytes % 14.2 Monocytes % 7.8 Eosinophils % 3.5 Basophils % 0.2 Absolute Neutrophils 9.4 H Absolute Lymphocytes 1.8 Absolute Monocytes 1.0 Absolute Eosinophils 0.4 Absolute Basophils 0.0 Sodium 134.0 L Potassium 3.2 L Chloride 94 L Carbon Dioxide 24 Anion Gap 16 BUN 8 Creatinine 1.03 Est GFR ( Amer) > 60 Est GFR (Non-Af Amer) 53 L Glucose 142 H Calcium 8.9 Magnesium 2.2 Total Bilirubin 0.2 AST 22 ALT 28 Alkaline Phosphatase 86 Total Protein 6.4 Albumin 4.0 08/27/18 06:45 Clean Catch Midstream Urine Culture - Final NO GROWTH 2 DAYS 08/26/18 08/26/18 21:02 21:02 Creatine Kinase 63 CK-MB (CK-2) < 0.22 Troponin I < 0.012 Impressions: Chest X-Ray 08/26/18 21:26 IMPRESSION: No acute cardiopulmonary process copyright 2010 [employer]- All Rights Reserved Abdomen/Pelvis CT 08/26/18 23:11 IMPRESSION: Findings concerning for left-sided pyelonephritis. Correlate with patient history. TECHNICAL DOCUMENTATION: Quality ID # 436: Final reports with documentation of one or more dose reduction techniques (e.g., Automated exposure control, adjustment of the mA and/or kV according to patient size, use of iterative reconstruction technique) copyright 2010 [employer]- All Rights Reserved KUB X-Ray 08/29/18 08:00 IMPRESSION: NO RADIOGRAPHIC EVIDENCE FOR ACUTE ABDOMINAL DISEASE. Assessment & Plan - Diagnosis (1) Pyelonephritis Is this a current diagnosis for this admission?: Yes Plan: 08/27/2018-CT abdomen and pelvis shows left-sided pyelonephritis but there is no evidence of renal stone or hydronephrosis. Patient has history of Klebsiella pneumonia sensitive to Bactrim presently she is on Bactrim. Stool for C. difficile is pending. Blood cultures urine cultures are pending. Patient is presently on IV fluids also. 08/28/2018-CT scan of the abdominal pelvis shows left-sided pyelonephritis. Patient is on Bactrim. She has also history of C. difficile. 08/29/2018 CT scan of the abdomen and pelvis shows left-sided pyelonephritis. Because of the previous history of recurrent C. difficile she is on only on Bactrim. so For blood cultures and urine cultures are negative. (2) History of Clostridium difficile colitis Is this a current diagnosis for this admission?: Yes Plan: 08/27/2018 patient history of recurrent C. difficile colitis. Presently she is on Bactrim. Waiting for the C. difficile culture report. Denies any loose stools prior to and during the hospital stay. 08/28/2018 patient has history of recurrent C. difficile colitis. Patient does not have any bowel movement since admission. going to give some miralax 08/29/2018-patient has history of recurrent C. difficile colitis she had not had any bowel movements until today ,tried MiraLAX yesterday but no bowel movement yet we going to give soapsuds enema today. Once stool sample available will check for C. difficile. (3) Acute renal failure Qualifiers: Acute renal failure type: unspecified Qualified Code(s): N17.9 - Acute kidney failure, unspecified Is this a current diagnosis for this admission?: Yes Plan: 08/27/2018-patient's baseline creatinine is around 2.45. Today it was 1.02. Most likely prerenal. She is getting IV fluids. Plan is to recheck the labs tomorrow. 08/28/2018-patient's admission creatinine is 2.42, today's creatinine is 0.96. Acute kidney injury which is prerenal is resolved. 08/29/2018-admission creatinine is 2.421 today creatinine was 1.03. Most likely prerenal is resolved with IV fluids. - Time Time Spent with patient: 15-24 minutes Smoking Cessation Education: 3 to 10 minutes Anticipated discharge: Home
[2018-08-29] MEDS: SIMVASTATIN 10 MG TABLET PO SCH (22:29)
[2018-08-29] MEDS: ATORVASTATIN CALCIUM 40 MG TABLET PO SCH (22:29)
[2018-08-30] MEDS: SULFAMETHOXAZOLE/TRIMETHOPRIM 480 MG in DEXTROSE 5%-WATER 1000 ML 750 ML IV SCH ×5 (00:53→23:30)
[2018-08-30] MEDS: HYDROXYZINE PAMOATE 50 MG CAPSULE PO SCH ×3 (06:03→22:15)
[2018-08-30] MEDS: HEPARIN SOD (PORCINE) 5,000 UNIT/ML 1 ML SYRINGE SUBCUT SCH ×3 (06:20→22:15)
[2018-08-30] MEDS: LANSOPRAZOLE 30 MG TAB.RAP.DR PO SCH (06:21)
[2018-08-30] MEDS: GABAPENTIN 300 MG CAPSULE PO SCH ×3 (06:21→22:15)
[2018-08-30 08:15] LABS: ABSOLUTE BASOPHILS # (AUTO) 0.1 10^3/uL (0.0-0.2); ABSOLUTE EOSINOPHILS # (AUTO) 0.8 10^3/uL (0.0-0.6); ABSOLUTE MONOCYTES (AUTO) 0.8 10^3/uL (0.1-1.4); ABSOLUTE NEUT (AUTO) 7.8 10^3/uL (1.7-8.2); BASOPHILS % (AUTO) 0.5 % (0-2); EOSINOPHILS % (AUTO) 6.8 % (0-6); HEMATOCRIT 35.5 % (36.0-47.0); HEMOGLOBIN 12.3 g/dL (12.0-15.5); LYMPHOCYTES % (AUTO) 17.5 % (13-45); MEAN CORPUSCULAR HEMOGLOBIN 28.4 pg (27.0-33.4); MEAN CORPUSCULAR HGB CONC 34.7 g/dL (32.0-36.0); MEAN CORPUSCULAR VOLUME 82 fl (80-97); MONOCYTES % (AUTO) 6.8 % (3-13); PLATELET COUNT 415 10^3/uL (150-450); RED BLOOD COUNT 4.34 10^6/uL (3.72-5.28); RED CELL DISTRIBUTION WIDTH 13.8 % (11.5-14.0); SEGMENTED NEUTROPHILS % (AUTO) 68.4 % (42-78); TOTAL CELLS COUNTED % (AUTO) 100 %; WHITE BLOOD COUNT 11.4 10^3/uL (4.0-10.5)
[2018-08-30 08:40] LABS: ALANINE AMINOTRANSFERASE 24 U/L (9-52); ALKALINE PHOSPHATASE 82 U/L (38-126); ANION GAP 14 (5-19); ASPARTATE AMINO TRANSFERASE 24 U/L (14-36); BILIRUBIN,DIRECT 0.1 mg/dL (0.0-0.4); BILIRUBIN,TOTAL 0.1 mg/dL (0.2-1.3); BLOOD UREA NITROGEN 11 mg/dL (7-20); CALCIUM 9.2 mg/dL (8.4-10.2); CARBON DIOXIDE 25 mmol/L (22-30); CHLORIDE 95 mmol/L (98-107); GLUCOSE 109 mg/dL (75-110); POTASSIUM 3.6 mmol/L (3.6-5.0); SODIUM 133.8 mmol/L (137-145); TOTAL PROTEIN 6.5 g/dL (6.3-8.2)
[2018-08-30] MEDS: METOPROLOL TARTRATE 50 MG TABLET PO SCH (10:52)
[2018-08-30] MEDS: AMLODIPINE BESYLATE 5 MG TABLET PO SCH ×2 (10:53→22:15)
[2018-08-30] MEDS: CITALOPRAM HYDROBROMIDE 20 MG TABLET PO SCH (10:53)
[2018-08-30] MEDS: DOCUSATE SODIUM 100 MG CAPSULE PO SCH ×2 (10:53→18:21)
[2018-08-30] MEDS: POTASSIUM CHLORIDE 20 MEQ/15 ML UDCUP PO SCH (10:54)
[2018-08-30] MEDS: HYDROCODONE/ACETAMINOPHEN 10-325 MG TABLET PO PRN (11:01)
[2018-08-30] MEDS: ALPRAZOLAM 0.25 MG TABLET PO PRN (11:02)
--- NOTE | 2018-08-30 14:46 | PDOC PROGRESS REPORT ---
Subjective Progress Note for:: 08/30/18 Subjective:: 08/27/[id number]-hpns-old female with history of recurrent C. difficile came in with urinary symptoms of abdominal pain CT abdomen shows left-sided pyelonephritis. C. difficile report is pending. Patient is presently on Bactrim. Febrile. No acute events since the admission. 08/28/2018-patient was admitted with UTI found to have left-sided pyelonephritis. No obstruction no stones was noticed in the CT scan. Patient is continued to have nausea and vomitings. T-max is 99.0. 08/29/2018 patient is still complaining of nausea occasional vomiting's. Much better than yesterday. Temperature is 97.7. 08/30/2018-patient denies any nausea and vomitings today still does not have any bowel movement which had subsided edema, we tried MiraLAX is did not help we are going to try GoLYTELY today. CT abdomen pelvis does not show any constipation or fecal impaction. Reason For Visit: UTI, ABD PAIN Physical Exam Vital Signs: Temp Pulse Resp BP Pulse Ox 97.7 F 63 18 131/45 H 98 08/30/18 07:00 08/30/18 07:00 08/30/18 07:00 08/30/18 07:00 08/30/18 07:00 Intake & Output 08/29/18 08/30/18 08/31/18 06:59 06:59 06:59 Intake Total 4000 3600 750 Output Total 2275 300 Balance 1725 3300 750 Weight 63.6 kg 65.1 kg General appearance: PRESENT: no acute distress Head exam: PRESENT: atraumatic Eye exam: PRESENT: PERRLA Neck exam: ABSENT: carotid bruit, JVD, lymphadenopathy, thyromegaly Respiratory exam: PRESENT: clear to auscultation christina. ABSENT: rales, rhonchi, wheezes Cardiovascular exam: PRESENT: RRR. ABSENT: diastolic murmur, rubs, systolic murmur GI/Abdominal exam: PRESENT: normal bowel sounds, soft. ABSENT: distended, guarding, mass, organolmegaly, rebound, tenderness Extremities exam: PRESENT: full ROM. ABSENT: calf tenderness, clubbing, pedal edema Neurological exam: PRESENT: alert, awake, oriented to person, oriented to place, oriented to time, oriented to situation, CN II-XII grossly intact. ABSENT: motor sensory deficit Psychiatric exam: PRESENT: appropriate affect, normal mood. ABSENT: homicidal ideation, suicidal ideation Results Laboratory Results: 08/30/18 07:18 08/30/18 07:18 08/30/18 08/30/18 07:18 07:18 WBC 11.4 H RBC 4.34 Hgb 12.3 Hct 35.5 L MCV 82 MCH 28.4 MCHC 34.7 RDW 13.8 Plt Count 415 Seg Neutrophils % 68.4 Lymphocytes % 17.5 Monocytes % 6.8 Eosinophils % 6.8 H Basophils % 0.5 Absolute Neutrophils 7.8 Absolute Lymphocytes 2.0 Absolute Monocytes 0.8 Absolute Eosinophils 0.8 H Absolute Basophils 0.1 Sodium 133.8 L Potassium 3.6 Chloride 95 L Carbon Dioxide 25 Anion Gap 14 BUN 11 Creatinine 1.09 Est GFR ( Amer) > 60 Est GFR (Non-Af Amer) 49 L Glucose 109 Calcium 9.2 Magnesium 2.5 H Total Bilirubin 0.1 L AST 24 ALT 24 Alkaline Phosphatase 82 Total Protein 6.5 Albumin 4.0 08/27/18 06:45 Clean Catch Midstream Urine Culture - Final NO GROWTH 2 DAYS 08/26/18 08/26/18 21:02 21:02 Creatine Kinase 63 CK-MB (CK-2) < 0.22 Troponin I < 0.012 Impressions: Chest X-Ray 08/26/18 21:26 IMPRESSION: No acute cardiopulmonary process copyright 2010 [employer]- All Rights Reserved Abdomen/Pelvis CT 08/26/18 23:11 IMPRESSION: Findings concerning for left-sided pyelonephritis. Correlate with patient history. TECHNICAL DOCUMENTATION: Quality ID # 436: Final reports with documentation of one or more dose reduction techniques (e.g., Automated exposure control, adjustment of the mA and/or kV according to patient size, use of iterative reconstruction technique) copyright 2010 [employer]- All Rights Reserved KUB X-Ray 08/29/18 08:00 IMPRESSION: NO RADIOGRAPHIC EVIDENCE FOR ACUTE ABDOMINAL DISEASE. Assessment & Plan - Diagnosis (1) Pyelonephritis Is this a current diagnosis for this admission?: Yes Plan: 08/27/2018-CT abdomen and pelvis shows left-sided pyelonephritis but there is no evidence of renal stone or hydronephrosis. Patient has history of Klebsiella pneumonia sensitive to Bactrim presently she is on Bactrim. Stool for C. difficile is pending. Blood cultures urine cultures are pending. Patient is presently on IV fluids also. 08/28/2018-CT scan of the abdominal pelvis shows left-sided pyelonephritis. Patient is on Bactrim. She has also history of C. difficile. 08/29/2018 CT scan of the abdomen and pelvis shows left-sided pyelonephritis. Because of the previous history of recurrent C. difficile she is on only on Bactrim. so For blood cultures and urine cultures are negative. 08/29/2018 patient came in with abdominal pain CT abdomen pelvis shows left-sided pyelonephritis. She is also history of recurrent C. difficile. Presently she is on Bactrim. Urine cultures and blood cultures are negative so far. (2) History of Clostridium difficile colitis Is this a current diagnosis for this admission?: Yes Plan: 08/27/2018 patient history of recurrent C. difficile colitis. Presently she is on Bactrim. Waiting for the C. difficile culture report. Denies any loose stools prior to and during the hospital stay. 08/28/2018 patient has history of recurrent C. difficile colitis. Patient does not have any bowel movement since admission. going to give some miralax 08/29/2018-patient has history of recurrent C. difficile colitis she had not had any bowel movements until today ,tried MiraLAX yesterday but no bowel movement yet we going to give soapsuds enema today. Once stool sample available will check for C. difficile. 08/30/2018 patient has history of C. difficile but she did not had a bowel movement for the last 3 days. We tried soapsud enema, "MiraLAX and we going to try GoLYTELY today. (3) Acute renal failure Qualifiers: Acute renal failure type: unspecified Qualified Code(s): N17.9 - Acute kidney failure, unspecified Is this a current diagnosis for this admission?: Yes Plan: 08/27/2018-patient's baseline creatinine is around 2.45. Today it was 1.02. Most likely prerenal. She is getting IV fluids. Plan is to recheck the labs tomorrow. 08/28/2018-patient's admission creatinine is 2.42, today's creatinine is 0.96. Acute kidney injury which is prerenal is resolved. 08/29/2018-admission creatinine is 2.421 today creatinine was 1.03. Most likely prerenal is resolved with IV fluids. 08/30/2018 patient came in with high elevated creatinine 2.42 and latest creatinine is 1.03 acute kidney injury most likely prerenal resolved with IV fluids. - Time Time Spent with patient: 15-24 minutes Medications reviewed and adjusted accordingly: Yes Anticipated discharge: Home
[2018-08-30] MEDS ORDERED: PEG 3350/NA SULF,BICARB,CL/KCL 4000 ML PO ONE (15:00)
[2018-08-30] MEDS: SIMVASTATIN 10 MG TABLET PO SCH (22:15)
[2018-08-30] MEDS: ATORVASTATIN CALCIUM 40 MG TABLET PO SCH (22:16)
[2018-08-31] MEDS: HYDROXYZINE PAMOATE 50 MG CAPSULE PO SCH ×3 (05:13→21:53)
[2018-08-31] MEDS: LANSOPRAZOLE 30 MG TAB.RAP.DR PO SCH (05:13)
[2018-08-31] MEDS: HEPARIN SOD (PORCINE) 5,000 UNIT/ML 1 ML SYRINGE SUBCUT SCH ×3 (05:13→21:53)
[2018-08-31] MEDS: SULFAMETHOXAZOLE/TRIMETHOPRIM 480 MG in DEXTROSE 5%-WATER 1000 ML 750 ML IV SCH ×4 (05:13→23:49)
[2018-08-31] MEDS: GABAPENTIN 300 MG CAPSULE PO SCH ×3 (05:14→21:53)
[2018-08-31 07:20] LABS: ABSOLUTE EOSINOPHILS # (AUTO) 0.8 10^3/uL (0.0-0.6); ABSOLUTE LYMPHOCYTES (AUTO) 1.6 10^3/uL (0.5-4.7); ABSOLUTE MONOCYTES (AUTO) 0.5 10^3/uL (0.1-1.4); ABSOLUTE NEUT (AUTO) 7.1 10^3/uL (1.7-8.2); BASOPHILS % (AUTO) 0.4 % (0-2); EOSINOPHILS % (AUTO) 7.7 % (0-6); HEMATOCRIT 34.4 % (36.0-47.0); LYMPHOCYTES % (AUTO) 15.8 % (13-45); MEAN CORPUSCULAR HEMOGLOBIN 28.6 pg (27.0-33.4); MEAN CORPUSCULAR HGB CONC 34.8 g/dL (32.0-36.0); MEAN CORPUSCULAR VOLUME 82 fl (80-97); MONOCYTES % (AUTO) 5.4 % (3-13); PLATELET COUNT 358 10^3/uL (150-450); RED BLOOD COUNT 4.19 10^6/uL (3.72-5.28); RED CELL DISTRIBUTION WIDTH 13.7 % (11.5-14.0); SEGMENTED NEUTROPHILS % (AUTO) 70.7 % (42-78); TOTAL CELLS COUNTED % (AUTO) 100 %; WHITE BLOOD COUNT 10.1 10^3/uL (4.0-10.5)
[2018-08-31 07:37] LABS: ALANINE AMINOTRANSFERASE 22 U/L (9-52); ALBUMIN 3.8 g/dL (3.5-5.0); ALKALINE PHOSPHATASE 82 U/L (38-126); ANION GAP 15 (5-19); ASPARTATE AMINO TRANSFERASE 21 U/L (14-36); BILIRUBIN,DIRECT 0.2 mg/dL (0.0-0.4); BILIRUBIN,TOTAL 0.2 mg/dL (0.2-1.3); BLOOD UREA NITROGEN 12 mg/dL (7-20); CARBON DIOXIDE 25 mmol/L (22-30); CHLORIDE 95 mmol/L (98-107); GLUCOSE 128 mg/dL (75-110); POTASSIUM 3.8 mmol/L (3.6-5.0); SODIUM 134.9 mmol/L (137-145); TOTAL PROTEIN 6.2 g/dL (6.3-8.2)
[2018-08-31] MEDS: AMLODIPINE BESYLATE 5 MG TABLET PO SCH ×2 (09:56→21:53)
[2018-08-31] MEDS: CITALOPRAM HYDROBROMIDE 20 MG TABLET PO SCH (09:57)
[2018-08-31] MEDS: POTASSIUM CHLORIDE 20 MEQ/15 ML UDCUP PO SCH (09:57)
[2018-08-31] MEDS: METOPROLOL TARTRATE 50 MG TABLET PO SCH (09:57)
[2018-08-31] MEDS: DOCUSATE SODIUM 100 MG CAPSULE PO SCH ×2 (10:02→18:33)
[2018-08-31] MEDS: ONDANSETRON HCL INJ/PF 4 MG/2 ML SDV IV PRN (15:01)
[2018-08-31] MEDS ORDERED: BISACODYL 10 MG SUPP.RECT PR ONE (16:10)
--- NOTE | 2018-08-31 16:18 | PDOC PROGRESS REPORT ---
Subjective Progress Note for:: 08/31/18 Subjective:: 08/27/[id number]-efqj-old female with history of recurrent C. difficile came in with urinary symptoms of abdominal pain CT abdomen shows left-sided pyelonephritis. C. difficile report is pending. Patient is presently on Bactrim. Febrile. No acute events since the admission. 08/28/2018-patient was admitted with UTI found to have left-sided pyelonephritis. No obstruction no stones was noticed in the CT scan. Patient is continued to have nausea and vomitings. T-max is 99.0. 08/29/2018 patient is still complaining of nausea occasional vomiting's. Much better than yesterday. Temperature is 97.7. 08/30/2018-patient denies any nausea and vomitings today still does not have any bowel movement which had subsided edema, we tried MiraLAX is did not help we are going to try GoLYTELY today. CT abdomen pelvis does not show any constipation or fecal impaction. 08/31/2018-no acute events in the last 24 hours. Patient is still does not have any bowel movement. We tried GoLYTELY, edema, MiraLAX without any success. He is going to try Dulcolax suppository. Patient is appetite is poor at the same time. No more nausea or vomitings. Reason For Visit: UTI, ABD PAIN Physical Exam Vital Signs: Temp Pulse Resp BP Pulse Ox 97.7 F 59 L 16 118/56 L 95 08/31/18 08:00 08/31/18 14:00 08/31/18 08:00 08/31/18 08:00 08/31/18 08:00 Intake & Output 08/30/18 08/31/18 09/01/18 06:59 06:59 06:59 Intake Total 3600 4320 750 Output Total 300 1000 Balance 3300 3320 750 Weight 65.1 kg 65.1 kg General appearance: PRESENT: no acute distress Head exam: PRESENT: atraumatic Eye exam: PRESENT: PERRLA Mouth exam: PRESENT: moist Neck exam: ABSENT: carotid bruit, JVD, lymphadenopathy, thyromegaly Respiratory exam: PRESENT: clear to auscultation christina. ABSENT: rales, rhonchi, wheezes Cardiovascular exam: PRESENT: irregular rhythm, systolic murmur, tachycardia GI/Abdominal exam: PRESENT: normal bowel sounds, soft. ABSENT: distended, guarding, mass, organolmegaly, rebound, tenderness Extremities exam: PRESENT: full ROM. ABSENT: calf tenderness, clubbing, pedal edema Neurological exam: PRESENT: alert, awake, oriented to person, oriented to place, oriented to time, oriented to situation, CN II-XII grossly intact. ABSENT: motor sensory deficit Psychiatric exam: PRESENT: appropriate affect, normal mood. ABSENT: homicidal ideation, suicidal ideation Results Laboratory Results: 08/31/18 06:41 08/31/18 06:41 08/31/18 08/31/18 06:41 06:41 WBC 10.1 RBC 4.19 Hgb 12.0 Hct 34.4 L MCV 82 MCH 28.6 MCHC 34.8 RDW 13.7 Plt Count 358 Seg Neutrophils % 70.7 Lymphocytes % 15.8 Monocytes % 5.4 Eosinophils % 7.7 H Basophils % 0.4 Absolute Neutrophils 7.1 Absolute Lymphocytes 1.6 Absolute Monocytes 0.5 Absolute Eosinophils 0.8 H Absolute Basophils 0.0 Sodium 134.9 L Potassium 3.8 Chloride 95 L Carbon Dioxide 25 Anion Gap 15 BUN 12 Creatinine 0.98 Est GFR ( Amer) > 60 Est GFR (Non-Af Amer) 56 L Glucose 128 H Calcium 9.0 Magnesium 2.3 Total Bilirubin 0.2 AST 21 ALT 22 Alkaline Phosphatase 82 Total Protein 6.2 L Albumin 3.8 08/26/18 08/26/18 21:02 21:02 Creatine Kinase 63 CK-MB (CK-2) < 0.22 Troponin I < 0.012 Impressions: Chest X-Ray 08/26/18 21:26 IMPRESSION: No acute cardiopulmonary process copyright 2010 [employer]- All Rights Reserved Abdomen/Pelvis CT 08/26/18 23:11 IMPRESSION: Findings concerning for left-sided pyelonephritis. Correlate with patient history. TECHNICAL DOCUMENTATION: Quality ID # 436: Final reports with documentation of one or more dose reduction techniques (e.g., Automated exposure control, adjustment of the mA and/or kV according to patient size, use of iterative reconstruction technique) copyright 2011 [employer]- All Rights Reserved KUB X-Ray 08/29/18 08:00 IMPRESSION: NO RADIOGRAPHIC EVIDENCE FOR ACUTE ABDOMINAL DISEASE. Assessment & Plan - Diagnosis (1) Pyelonephritis Is this a current diagnosis for this admission?: Yes Plan: 08/27/2018-CT abdomen and pelvis shows left-sided pyelonephritis but there is no evidence of renal stone or hydronephrosis. Patient has history of Klebsiella pneumonia sensitive to Bactrim presently she is on Bactrim. Stool for C. difficile is pending. Blood cultures urine cultures are pending. Patient is presently on IV fluids also. 08/28/2018-CT scan of the abdominal pelvis shows left-sided pyelonephritis. Patient is on Bactrim. She has also history of C. difficile. 08/29/2018 CT scan of the abdomen and pelvis shows left-sided pyelonephritis. Because of the previous history of recurrent C. difficile she is on only on Bactrim. so For blood cultures and urine cultures are negative. 08/30/2018 patient came in with abdominal pain CT abdomen pelvis shows left-sided pyelonephritis. She is also history of recurrent C. difficile. Presently she is on Bactrim. Urine cultures and blood cultures are negative so far. 08/31/2018-patient was admitted with severe abdominal pain found to have left- sided pyelonephritis the cultures are negative so far. Patient received almost 5 days of antibiotic therapy plan is to discontinue antibiotics tomorrow. pt Is afebrile for last the last 2-3 days. (2) History of Clostridium difficile colitis Is this a current diagnosis for this admission?: Yes (3) Acute renal failure Qualifiers: Acute renal failure type: unspecified Qualified Code(s): N17.9 - Acute kidney failure, unspecified Is this a current diagnosis for this admission?: Yes Plan: 08/27/2018-patient's baseline creatinine is around 2.45. Today it was 1.02. Most likely prerenal. She is getting IV fluids. Plan is to recheck the labs tomorrow. 08/28/2018-patient's admission creatinine is 2.42, today's creatinine is 0.96. Acute kidney injury which is prerenal is resolved. 08/29/2018-admission creatinine is 2.421 today creatinine was 1.03. Most likely prerenal is resolved with IV fluids. 08/30/2018 patient came in with high elevated creatinine 2.42 and latest creatinine is 1.03 acute kidney injury most likely prerenal resolved with IV fluids. 08/31/2018 patient admitted with a serum creatinine of 2.4-1 today's creatinine is 0.98 acute kidney injury secondary to prerenal causes resolved. - Time Time Spent with patient: 15-24 minutes Anticipated discharge: Home
[2018-08-31] MEDS: ATORVASTATIN CALCIUM 40 MG TABLET PO SCH (21:53)
[2018-08-31] MEDS: SIMVASTATIN 10 MG TABLET PO SCH (21:53)
[2018-09-01] MEDS: LANSOPRAZOLE 30 MG TAB.RAP.DR PO SCH (05:53)
[2018-09-01] MEDS: HYDROXYZINE PAMOATE 50 MG CAPSULE PO SCH ×3 (05:53→21:10)
[2018-09-01] MEDS: SULFAMETHOXAZOLE/TRIMETHOPRIM 480 MG in DEXTROSE 5%-WATER 1000 ML 750 ML IV SCH ×4 (05:53→23:03)
[2018-09-01] MEDS: GABAPENTIN 300 MG CAPSULE PO SCH ×3 (05:53→21:09)
[2018-09-01] MEDS: HEPARIN SOD (PORCINE) 5,000 UNIT/ML 1 ML SYRINGE SUBCUT SCH ×3 (05:54→21:10)
[2018-09-01] MEDS: AMLODIPINE BESYLATE 5 MG TABLET PO SCH ×2 (09:59→21:09)
[2018-09-01] MEDS: POTASSIUM CHLORIDE 20 MEQ/15 ML UDCUP PO SCH (10:00)
[2018-09-01] MEDS: DOCUSATE SODIUM 100 MG CAPSULE PO SCH ×2 (10:00→17:37)
[2018-09-01] MEDS: CITALOPRAM HYDROBROMIDE 20 MG TABLET PO SCH (10:00)
[2018-09-01] MEDS: METOPROLOL TARTRATE 50 MG TABLET PO SCH (10:00)
--- NOTE | 2018-09-01 13:52 | PDOC PROGRESS REPORT ---
Subjective Progress Note for:: 09/01/18 Subjective:: 08/27[birth year][id number]-qlvn-old female with history of recurrent C. difficile came in with urinary symptoms of abdominal pain CT abdomen shows left-sided pyelonephritis. C. difficile report is pending. Patient is presently on Bactrim. Febrile. No acute events since the admission. 08/28/2018-patient was admitted with UTI found to have left-sided pyelonephritis. No obstruction no stones was noticed in the CT scan. Patient is continued to have nausea and vomitings. T-max is 99.0. 08/29/2018 patient is still complaining of nausea occasional vomiting's. Much better than yesterday. Temperature is 97.7. 08/30/2018-patient denies any nausea and vomitings today still does not have any bowel movement which had subsided edema, we tried MiraLAX is did not help we are going to try GoLYTELY today. CT abdomen pelvis does not show any constipation or fecal impaction. 08/31/2018-no acute events in the last 24 hours. Patient is still does not have any bowel movement. We tried GoLYTELY, edema, MiraLAX without any success. He is going to try Dulcolax suppository. Patient is appetite is poor at the same time. No more nausea or vomitings. 09/01/2018-no acute events in the last 24 hours. Patient is afebrile. Patient is admitted with abdominal pain found to have left pyelonephritis. No more nausea and vomitings. She had a good bowel movement yesterday. Reason For Visit: UTI, ABD PAIN Physical Exam Vital Signs: Temp Pulse Resp BP Pulse Ox 98.0 F 53 L 16 102/43 L 95 09/01/18 12:00 09/01/18 12:00 09/01/18 12:00 09/01/18 12:00 09/01/18 12:00 Intake & Output 08/31/18 09/01/18 09/02/18 06:59 06:59 06:59 Intake Total 4320 4540 750 Output Total 1000 Balance 3320 4540 750 Weight 65.1 kg 65.1 kg General appearance: PRESENT: no acute distress Eye exam: PRESENT: PERRLA Mouth exam: PRESENT: dry mucosa Respiratory exam: PRESENT: clear to auscultation christina. ABSENT: rales, rhonchi, wheezes Cardiovascular exam: PRESENT: RRR, other. ABSENT: diastolic murmur, rubs, systolic murmur GI/Abdominal exam: PRESENT: normal bowel sounds, soft. ABSENT: distended, guarding, mass, organolmegaly, rebound, tenderness Extremities exam: PRESENT: full ROM. ABSENT: calf tenderness, clubbing, pedal edema Neurological exam: PRESENT: alert, awake, oriented to person, oriented to place, oriented to time, oriented to situation, CN II-XII grossly intact. ABSENT: motor sensory deficit Psychiatric exam: PRESENT: appropriate affect, normal mood. ABSENT: homicidal ideation, suicidal ideation Results Laboratory Results: 08/31/18 06:41 08/31/18 06:41 08/27/18 07:52 Blood Blood Culture - Final NO GROWTH IN 5 DAYS 08/27/18 05:47 Blood Blood Culture - Final NO GROWTH IN 5 DAYS 08/26/18 08/26/18 21:02 21:02 Creatine Kinase 63 CK-MB (CK-2) < 0.22 Troponin I < 0.012 Impressions: Chest X-Ray 08/26/18 21:26 IMPRESSION: No acute cardiopulmonary process copyright 2010 [employer]- All Rights Reserved Abdomen/Pelvis CT 08/26/18 23:11 IMPRESSION: Findings concerning for left-sided pyelonephritis. Correlate with patient history. TECHNICAL DOCUMENTATION: Quality ID # 436: Final reports with documentation of one or more dose reduction techniques (e.g., Automated exposure control, adjustment of the mA and/or kV according to patient size, use of iterative reconstruction technique) copyright 2010 [employer]- All Rights Reserved KUB X-Ray 08/29/18 08:00 IMPRESSION: NO RADIOGRAPHIC EVIDENCE FOR ACUTE ABDOMINAL DISEASE. Assessment & Plan - Diagnosis (1) Pyelonephritis Is this a current diagnosis for this admission?: Yes Plan: 08/27/2018-CT abdomen and pelvis shows left-sided pyelonephritis but there is no evidence of renal stone or hydronephrosis. Patient has history of Klebsiella pneumonia sensitive to Bactrim presently she is on Bactrim. Stool for C. difficile is pending. Blood cultures urine cultures are pending. Patient is presently on IV fluids also. 08/28/2018-CT scan of the abdominal pelvis shows left-sided pyelonephritis. Patient is on Bactrim. She has also history of C. difficile. 08/29/2018 CT scan of the abdomen and pelvis shows left-sided pyelonephritis. Because of the previous history of recurrent C. difficile she is on only on Bactrim. so For blood cultures and urine cultures are negative. 08/30/2018 patient came in with abdominal pain CT abdomen pelvis shows left-sided pyelonephritis. She is also history of recurrent C. difficile. Presently she is on Bactrim. Urine cultures and blood cultures are negative so far. 08/31/2018-patient was admitted with severe abdominal pain found to have left- sided pyelonephritis the cultures are negative so far. Patient received almost 5 days of antibiotic therapy plan is to discontinue antibiotics tomorrow. pt Is afebrile for last the last 2-3 days. 09/01/2018-CT scan at the time of admission shows left-sided pyelonephritis. Cultures are negative so far. After 5 days antibiotic therapy is discontinued. Patient is afebrile. T-max is 98. (2) History of Clostridium difficile colitis Is this a current diagnosis for this admission?: Yes Plan: 08/27/2018 patient history of recurrent C. difficile colitis. Presently she is on Bactrim. Waiting for the C. difficile culture report. Denies any loose stools prior to and during the hospital stay. 08/28/2018 patient has history of recurrent C. difficile colitis. Patient does not have any bowel movement since admission. going to give some miralax 08/29/2018-patient has history of recurrent C. difficile colitis she had not had any bowel movements until today ,tried MiraLAX yesterday but no bowel movement yet we going to give soapsuds enema today. Once stool sample available will check for C. difficile. 08/30/2018 patient has history of C. difficile but she did not had a bowel movement for the last 3 days. We tried soapsud enema, "MiraLAX and we going to try GoLYTELY today. (3) Acute renal failure Qualifiers: Acute renal failure type: unspecified Qualified Code(s): N17.9 - Acute kidney failure, unspecified Is this a current diagnosis for this admission?: Yes Plan: 08/27/2018-patient's baseline creatinine is around 2.45. Today it was 1.02. Most likely prerenal. She is getting IV fluids. Plan is to recheck the labs tomorrow. 08/28/2018-patient's admission creatinine is 2.42, today's creatinine is 0.96. Acute kidney injury which is prerenal is resolved. 08/29/2018-admission creatinine is 2.421 today creatinine was 1.03. Most likely prerenal is resolved with IV fluids. 08/30/2018 patient came in with high elevated creatinine 2.42 and latest creatinine is 1.03 acute kidney injury most likely prerenal resolved with IV fluids. 08/31/2018 patient admitted with a serum creatinine of 2.4-1 today's creatinine is 0.98 acute kidney injury secondary to prerenal causes resolved. 09/01/2018 patient is admitted with creatinine of 2.42, and it was improved to 0.98. Acute renal failure secondary to prerenal causes resolved.
[2018-09-01] MEDS: ONDANSETRON HCL INJ/PF 4 MG/2 ML SDV IV PRN (17:48)
[2018-09-01] MEDS: SIMVASTATIN 10 MG TABLET PO SCH (21:09)
[2018-09-01] MEDS: ATORVASTATIN CALCIUM 40 MG TABLET PO SCH (21:09)
[2018-09-01] MEDS: HYDROCODONE/ACETAMINOPHEN 10-325 MG TABLET PO PRN (21:09)
[2018-09-02] MEDS: SULFAMETHOXAZOLE/TRIMETHOPRIM 480 MG in DEXTROSE 5%-WATER 1000 ML 750 ML IV SCH ×2 (05:44→13:00)
[2018-09-02] MEDS: GABAPENTIN 300 MG CAPSULE PO SCH ×3 (05:45→21:38)
[2018-09-02] MEDS: LANSOPRAZOLE 30 MG TAB.RAP.DR PO SCH (05:45)
[2018-09-02] MEDS: HEPARIN SOD (PORCINE) 5,000 UNIT/ML 1 ML SYRINGE SUBCUT SCH ×3 (05:45→21:39)
[2018-09-02] MEDS: HYDROXYZINE PAMOATE 50 MG CAPSULE PO SCH ×3 (05:45→21:38)
[2018-09-02] MEDS: PROMETHAZINE HCL INJ 25 MG/1 ML VIAL IV PRN ×2 (08:51→15:07)
[2018-09-02] MEDS: HYDROCODONE/ACETAMINOPHEN 10-325 MG TABLET PO PRN ×2 (08:51→15:07)
[2018-09-02] MEDS: POTASSIUM CHLORIDE 20 MEQ/15 ML UDCUP PO SCH (09:37)
[2018-09-02] MEDS: CITALOPRAM HYDROBROMIDE 20 MG TABLET PO SCH (09:37)
[2018-09-02] MEDS: DOCUSATE SODIUM 100 MG CAPSULE PO SCH ×2 (09:38→17:42)
[2018-09-02] MEDS: METOPROLOL TARTRATE 50 MG TABLET PO SCH (13:10)
[2018-09-02] MEDS: AMLODIPINE BESYLATE 5 MG TABLET PO SCH (13:10)
--- NOTE | 2018-09-02 13:40 | PDOC PROGRESS REPORT ---
Subjective Progress Note for:: 09/02/18 Subjective:: 08/27/[id number]-lsty-old female with history of recurrent C. difficile came in with urinary symptoms of abdominal pain CT abdomen shows left-sided pyelonephritis. C. difficile report is pending. Patient is presently on Bactrim. Febrile. No acute events since the admission. 08/28/2018-patient was admitted with UTI found to have left-sided pyelonephritis. No obstruction no stones was noticed in the CT scan. Patient is continued to have nausea and vomitings. T-max is 99.0. 08/29/2018 patient is still complaining of nausea occasional vomiting's. Much better than yesterday. Temperature is 97.7. 08/30/2018-patient denies any nausea and vomitings today still does not have any bowel movement which had subsided edema, we tried MiraLAX is did not help we are going to try GoLYTELY today. CT abdomen pelvis does not show any constipation or fecal impaction. 08/31/2018-no acute events in the last 24 hours. Patient is still does not have any bowel movement. We tried GoLYTELY, edema, MiraLAX without any success. He is going to try Dulcolax suppository. Patient is appetite is poor at the same time. No more nausea or vomitings. 09/01/2018-no acute events in the last 24 hours. Patient is afebrile. Patient is admitted with abdominal pain found to have left pyelonephritis. No more nausea and vomitings. She had a good bowel movement yesterday. 09/02/2018-no acute events in the last 24 hours. Patient is afebrile. Urine cultures blood cultures are negative. Patient will complete still complaining of occasional nausea she is getting antiemetics. Family is concerned about the patient's weakness and fatigue. Physical therapy consult was done on Sunday the going to reevaluate her today. Reason For Visit: UTI, ABD PAIN Physical Exam Vital Signs: Temp Pulse Resp BP Pulse Ox 98.5 F 65 19 129/91 H 100 09/02/18 00:00 09/02/18 07:00 09/02/18 00:00 09/02/18 00:00 09/02/18 00:00 Intake & Output 09/01/18 09/02/18 09/03/18 06:59 06:59 06:59 Intake Total 4540 9061 750 Balance 4540 3740 750 Weight 65.1 kg 98.5 kg General appearance: PRESENT: no acute distress Head exam: PRESENT: atraumatic Eye exam: PRESENT: PERRLA Neck exam: ABSENT: carotid bruit, JVD, lymphadenopathy, thyromegaly Respiratory exam: PRESENT: decreased breath sounds Cardiovascular exam: PRESENT: RRR. ABSENT: diastolic murmur, rubs, systolic murmur GI/Abdominal exam: PRESENT: normal bowel sounds, soft. ABSENT: distended, guarding, mass, organolmegaly, rebound, tenderness Extremities exam: PRESENT: full ROM. ABSENT: calf tenderness, clubbing, pedal edema Neurological exam: PRESENT: alert, awake, oriented to person, oriented to place, oriented to time, oriented to situation, CN II-XII grossly intact. ABSENT: motor sensory deficit Psychiatric exam: PRESENT: appropriate affect, normal mood. ABSENT: homicidal ideation, suicidal ideation Results Laboratory Results: 08/31/18 06:41 08/31/18 06:41 08/27/18 07:52 Blood Blood Culture - Final NO GROWTH IN 5 DAYS 08/27/18 05:47 Blood Blood Culture - Final NO GROWTH IN 5 DAYS 08/26/18 08/26/18 21:02 21:02 Creatine Kinase 63 CK-MB (CK-2) < 0.22 Troponin I < 0.012 Impressions: Chest X-Ray 08/26/18 21:26 IMPRESSION: No acute cardiopulmonary process copyright 2010 [employer]- All Rights Reserved Abdomen/Pelvis CT 08/26/18 23:11 IMPRESSION: Findings concerning for left-sided pyelonephritis. Correlate with patient history. TECHNICAL DOCUMENTATION: Quality ID # 436: Final reports with documentation of one or more dose reduction techniques (e.g., Automated exposure control, adjustment of the mA and/or kV according to patient size, use of iterative reconstruction technique) copyright 2010 [employer]- All Rights Reserved KUB X-Ray 08/29/18 08:00 IMPRESSION: NO RADIOGRAPHIC EVIDENCE FOR ACUTE ABDOMINAL DISEASE. Assessment & Plan - Diagnosis (1) Pyelonephritis Is this a current diagnosis for this admission?: Yes Plan: 08/27/2018-CT abdomen and pelvis shows left-sided pyelonephritis but there is no evidence of renal stone or hydronephrosis. Patient has history of Klebsiella pneumonia sensitive to Bactrim presently she is on Bactrim. Stool for C. diffi cile is pending. Blood cultures urine cultures are pending. Patient is presently on IV fluids also. 08/28/2018-CT scan of the abdominal pelvis shows left-sided pyelonephritis. Patient is on Bactrim. She has also history of C. difficile. 08/29/2018 CT scan of the abdomen and pelvis shows left-sided pyelonephritis. Because of the previous history of recurrent C. difficile she is on only on Bact rim. so For blood cultures and urine cultures are negative. 08/30/2018 patient came in with abdominal pain CT abdomen pelvis shows left-sided pyelonephritis. She is also history of recurrent C. difficile. Presently she is on Bactrim. Urine cultures and blood cultures are negative so far. 08/31/2018-patient was admitted with severe abdominal pain found to have left- sided pyelonephritis the cultures are negative so far. Patient received almost 5 days of antibiotic therapy plan is to discontinue antibiotics tomorrow. pt Is afebrile for last the last 2-3 days. 09/01/2018-CT scan at the time of admission shows left-sided pyelonephritis. Cultures are negative so far. After 5 days antibiotic therapy is discontinued. Patient is afebrile. T-max is 98. 09/02/2018-CT scan of the abdomen and pelvis shows left-sided pyelonephritis. The urine cultures are negative. Antibiotics are discontinued. Patient is afebrile. (2) History of Clostridium difficile colitis Is this a current diagnosis for this admission?: Yes Plan: 08/27/2018 patient history of recurrent C. difficile colitis. Presently she is on Bactrim. Waiting for the C. difficile culture report. Denies any loose stools prior to and during the hospital stay. 08/28/2018 patient has history of recurrent C. difficile colitis. Patient does not have any bowel movement since admission. going to give some miralax 08/29/2018-patient has history of recurrent C. difficile colitis she had not had any bowel movements until today ,tried MiraLAX yesterday but no bowel movement yet we going to give soapsuds enema today. Once stool sample available will check for C. difficile. 08/30/2018 patient has history of C. difficile but she did not had a bowel movement for the last 3 days. We tried soapsud enema, "MiraLAX and we going to try GoLYTELY today. 09/02/2018-patient has history of C. difficile she had a bowel movement yesterday. No diarrhea. Plan to check for C. difficile was stopped (3) Acute renal failure Qualifiers: Acute renal failure type: unspecified Qualified Code(s): N17.9 - Acute kidney failure, unspecified Is this a current diagnosis for this admission?: Yes Plan: 08/27/2018-patient's baseline creatinine is around 2.45. Today it was 1.02. Most likely prerenal. She is getting IV fluids. Plan is to recheck the labs tomorrow. 08/28/2018-patient's admission creatinine is 2.42, today's creatinine is 0.96. Acute kidney injury which is prerenal is resolved. 08/29/2018-admission creatinine is 2.421 today creatinine was 1.03. Most likely prerenal is resolved with IV fluids. 08/30/2018 patient came in with high elevated creatinine 2.42 and latest creatinine is 1.03 acute kidney injury most likely prerenal resolved with IV fluids. 08/31/2018 patient admitted with a serum creatinine of 2.4-1 today's creatinine is 0.98 acute kidney injury secondary to prerenal causes resolved. 09/01/2018 patient is admitted with creatinine of 2.42, and it was improved to 0.98. Acute renal failure secondary to prerenal causes resolved. 09/02/2018-patient admission creatinine is 2.42 on admission, latest creatinine is 0.98. Acute renal failure secondary to prerenal causes resolved. - Time Time Spent with patient: 15-24 minutes Medications reviewed and adjusted accordingly: Yes
[2018-09-02] MEDS: ATORVASTATIN CALCIUM 40 MG TABLET PO SCH (21:38)
[2018-09-02] MEDS: SIMVASTATIN 10 MG TABLET PO SCH (21:39)
[2018-09-03] MEDS: HYDROXYZINE PAMOATE 50 MG CAPSULE PO SCH ×3 (06:20→21:48)
[2018-09-03] MEDS: GABAPENTIN 300 MG CAPSULE PO SCH ×3 (06:20→21:47)
[2018-09-03] MEDS: HEPARIN SOD (PORCINE) 5,000 UNIT/ML 1 ML SYRINGE SUBCUT SCH ×3 (06:20→21:46)
[2018-09-03] MEDS: LANSOPRAZOLE 30 MG TAB.RAP.DR PO SCH (06:20)
[2018-09-03 08:56] LABS: HEMATOCRIT 37.1 % (36.0-47.0); HEMOGLOBIN 12.8 g/dL (12.0-15.5); MEAN CORPUSCULAR HEMOGLOBIN 28.5 pg (27.0-33.4); MEAN CORPUSCULAR HGB CONC 34.5 g/dL (32.0-36.0); MEAN CORPUSCULAR VOLUME 83 fl (80-97); PLATELET COUNT 337 10^3/uL (150-450); RED CELL DISTRIBUTION WIDTH 14.1 % (11.5-14.0); WHITE BLOOD COUNT 7.8 10^3/uL (4.0-10.5)
[2018-09-03 09:10] LABS: ALANINE AMINOTRANSFERASE 29 U/L (9-52); ALBUMIN 4.7 g/dL (3.5-5.0); ALKALINE PHOSPHATASE 127 U/L (38-126); ANION GAP 18 (5-19); ASPARTATE AMINO TRANSFERASE 38 U/L (14-36); BILIRUBIN,DIRECT 0.3 mg/dL (0.0-0.4); BILIRUBIN,TOTAL 0.3 mg/dL (0.2-1.3); BLOOD UREA NITROGEN 14 mg/dL (7-20); CALCIUM 9.6 mg/dL (8.4-10.2); CARBON DIOXIDE 22 mmol/L (22-30); CHLORIDE 88 mmol/L (98-107); GLUCOSE 73 mg/dL (75-110); POTASSIUM 5.4 mmol/L (3.6-5.0); SODIUM 127.6 mmol/L (137-145); TOTAL PROTEIN 7.4 g/dL (6.3-8.2)
[2018-09-03] MEDS: POTASSIUM CHLORIDE 20 MEQ/15 ML UDCUP PO SCH (09:37)
[2018-09-03] MEDS: CITALOPRAM HYDROBROMIDE 20 MG TABLET PO SCH (09:45)
[2018-09-03] MEDS: METOPROLOL TARTRATE 50 MG TABLET PO SCH (09:45)
[2018-09-03] MEDS: DOCUSATE SODIUM 100 MG CAPSULE PO SCH ×2 (09:46→18:11)
[2018-09-03 10:07] LABS: ABSOLUTE LYMPHOCYTES# (MANUAL) 0.9 10^3/uL (0.5-4.7); ABSOLUTE MONOCYTES # (MANUAL) 0.6 10^3/uL (0.1-1.4); ABSOLUTE NEUTROPHILS# (MANUAL) 6.2 10^3/uL (1.7-8.2); BAND NEUTROPHILS % (MANUAL) 2 % (3-5); BASOPHILS % (MANUAL) 0 % (0-2); EOSINOPHILS % (MANUAL) 1 % (0-6); LYMPHOCYTES % (MANUAL) 8 % (13-45); MONOCYTES % (MANUAL) 8 % (3-13); SEGMENTED NEUTROPHILS % (MAN) 78 % (42-78); TOTAL CELLS COUNTED 100
[2018-09-03 10:08] LABS: ROULEAUX SLIGHT
[2018-09-03 10:10] LABS: ANISOCYTOSIS SLIGHT; HYPOCHROMASIA 1+; PLATELET COMMENT ADEQUATE
[2018-09-03 15:36] LABS: ALANINE AMINOTRANSFERASE 48 U/L (9-52); ALBUMIN 4.8 g/dL (3.5-5.0); ALKALINE PHOSPHATASE 113 U/L (38-126); ANION GAP 16 (5-19); ASPARTATE AMINO TRANSFERASE 38 U/L (14-36); BILIRUBIN,DIRECT 0.2 mg/dL (0.0-0.4); BILIRUBIN,TOTAL 0.3 mg/dL (0.2-1.3); BLOOD UREA NITROGEN 19 mg/dL (7-20); CALCIUM 9.9 mg/dL (8.4-10.2); CARBON DIOXIDE 23 mmol/L (22-30); CHLORIDE 89 mmol/L (98-107); GLUCOSE 87 mg/dL (75-110); POTASSIUM 5.8 mmol/L (3.6-5.0); SODIUM 127.7 mmol/L (137-145); TOTAL PROTEIN 7.3 g/dL (6.3-8.2)
--- NOTE | 2018-09-03 15:44 | PDOC PROGRESS REPORT ---
Subjective Progress Note for:: 09/03/18 Subjective:: 08/27/[id number]-old female with history of recurrent C. difficile came in with urinary symptoms of abdominal pain CT abdomen shows left-sided pyelonephritis. C. difficile report is pending. Patient is presently on Bactrim. Febrile. No acute events since the admission. 08/28/2018-patient was admitted with UTI found to have left-sided pyelonephritis. No obstruction no stones was noticed in the CT scan. Patient is continued to have nausea and vomitings. T-max is 99.0. 08/29/2018 patient is still complaining of nausea occasional vomiting's. Much better than yesterday. Temperature is 97.7. 08/30/2018-patient denies any nausea and vomitings today still does not have any bowel movement which had subsided edema, we tried MiraLAX is did not help we are going to try GoLYTELY today. CT abdomen pelvis does not show any constipation or fecal impaction. 08/31/2018-no acute events in the last 24 hours. Patient is still does not have any bowel movement. We tried GoLYTELY, edema, MiraLAX without any success. He is going to try Dulcolax suppository. Patient is appetite is poor at the same time. No more nausea or vomitings. 09/01/2018-no acute events in the last 24 hours. Patient is afebrile. Patient is admitted with abdominal pain found to have left pyelonephritis. No more nausea and vomitings. She had a good bowel movement yesterday. 09/02/2018-no acute events in the last 24 hours. Patient is afebrile. Urine cultures blood cultures are negative. Patient will complete still complaining of occasional nausea she is getting antiemetics. Family is concerned about the patient's weakness and fatigue. Physical therapy consult was done on Sunday the going to reevaluate her today. 09/03/2018-patient was comfortably sitting in the edge of the bed talking to her daughter. Not in distress. Alert and oriented communicating very well. Benedict chowdhury said she was tired yesterday and unable to participate in the physical therapy. No complaints of nausea no complaints of pain no vomiting's. Reason For Visit: UTI, ABD PAIN Physical Exam Vital Signs: Temp Pulse Resp BP Pulse Ox 97.6 F 58 L 16 130/60 H 90 L 09/03/18 00:00 09/03/18 02:00 09/03/18 00:00 09/03/18 00:00 09/03/18 00:00 Intake & Output 09/02/18 09/03/18 09/04/18 06:59 06:59 06:59 Intake Total 3740 2234 473 Balance 3740 2234 473 Weight 98.5 kg 98.5 kg General appearance: PRESENT: no acute distress Head exam: PRESENT: atraumatic Eye exam: PRESENT: PERRLA Neck exam: ABSENT: carotid bruit, JVD, lymphadenopathy, thyromegaly Respiratory exam: PRESENT: clear to auscultation christina. ABSENT: rales, rhonchi, wheezes Cardiovascular exam: PRESENT: RRR. ABSENT: diastolic murmur, rubs, systolic murmur GI/Abdominal exam: PRESENT: normal bowel sounds, soft. ABSENT: distended, g uarding, mass, organolmegaly, rebound, tenderness Extremities exam: PRESENT: full ROM. ABSENT: calf tenderness, clubbing, pedal edema Neurological exam: PRESENT: alert, awake, oriented to person, oriented to place, oriented to time, oriented to situation, CN II-XII grossly intact. ABSENT: motor sensory deficit Psychiatric exam: PRESENT: appropriate affect, normal mood. ABSENT: homicidal ideation, suicidal ideation Results Laboratory Results: 09/03/18 07:56 09/03/18 09/03/18 07:56 07:56 WBC 7.8 RBC 4.50 Hgb 12.8 Hct 37.1 MCV 83 MCH 28.5 MCHC 34.5 RDW 14.1 H Plt Count 337 Seg Neutrophils % Not Reportable Lymphocytes % Not Reportable Monocytes % Not Reportable Eosinophils % Not Reportable Basophils % Not Reportable Absolute Neutrophils Not Reportable Absolute Lymphocytes Not Reportable Absolute Monocytes Not Reportable Absolute Eosinophils Not Reportable Absolute Basophils Not Reportable Sodium 127.6 L Potassium 5.4 H Chloride 88 L Carbon Dioxide 22 Anion Gap 18 BUN 14 Creatinine 1.06 Est GFR ( Amer) > 60 Est GFR (Non-Af Amer) 51 L Glucose 73 L Calcium 9.6 Magnesium 2.2 Total Bilirubin 0.3 AST 38 H ALT 29 Alkaline Phosphatase 127 H Total Protein 7.4 Albumin 4.7 08/26/18 08/26/18 21:02 21:02 Creatine Kinase 63 CK-MB (CK-2) < 0.22 Troponin I < 0.012 Impressions: Chest X-Ray 08/26/18 21:26 IMPRESSION: No acute cardiopulmonary process copyright 2010 [employer]- All Rights Reserved Abdomen/Pelvis CT 08/26/18 23:11 IMPRESSION: Findings concerning for left-sided pyelonephritis. Correlate with patient history. TECHNICAL DOCUMENTATION: Quality ID # 436: Final reports with documentation of one or more dose reduction techniques (e.g., Automated exposure control, adjustment of the mA and/or kV according to patient size, use of iterative reconstruction technique) copyright 2010 [employer]- All Rights Reserved KUB X-Ray 08/29/18 08:00 IMPRESSION: NO RADIOGRAPHIC EVIDENCE FOR ACUTE ABDOMINAL DISEASE. Assessment & Plan - Diagnosis (1) Pyelonephritis Is this a current diagnosis for this admission?: Yes Plan: 08/27/2018-CT abdomen and pelvis shows left-sided pyelonephritis but there is no evidence of renal stone or hydronephrosis. Patient has history of Klebsiella pneumonia sensitive to Bactrim presently she is on Bactrim. Stool for C. difficile is pending. Blood cultures urine cultures are pending. Patient is presently on IV fluids also. 08/28/2018-CT scan of the abdominal pelvis shows left-sided pyelonephritis. Patient is on Bactrim. She has also history of C. difficile. 08/29/2018 CT scan of the abdomen and pelvis shows left-sided pyelonephritis. Because of the previous history of recurrent C. difficile she is on only on Bactrim. so For blood cultures and urine cultures are negative. 08/30/2018 patient came in with abdominal pain CT abdomen pelvis shows left-sided pyelonephritis. She is also history of recurrent C. difficile. Presently she is on Bactrim. Urine cultures and blood cultures are negative so far. 08/31/2018-patient was admitted with severe abdominal pain found to have left- sided pyelonephritis the cultures are negative so far. Patient received almost 5 days of antibiotic therapy plan is to discontinue antibiotics tomorrow. pt Is afebrile for last the last 2-3 days. 09/01/2018-CT scan at the time of admission shows left-sided pyelonephritis. Cultures are negative so far. After 5 days antibiotic therapy is discontinued. Patient is afebrile. T-max is 98. 09/02/2018-CT scan of the abdomen and pelvis shows left-sided pyelonephritis. The urine cultures are negative. Antibiotics are discontinued. Patient is afebrile. 09/03/2018-patient was admitted with left-sided pyelonephritis. Urine cultures are negative. Antibiotics were discontinued. T-max is 97.6 today. (2) History of Clostridium difficile colitis Is this a current diagnosis for this admission?: Yes Plan: 08/27/2018 patient history of recurrent C. difficile colitis. Presently she is on Bactrim. Waiting for the C. difficile culture report. Denies any loose stools prior to and during the hospital stay. 08/28/2018 patient has history of recurrent C. difficile colitis. Patient does not have any bowel movement since admission. going to give some miralax 08/29/2018-patient has history of recurrent C. difficile colitis she had not had any bowel movements until today ,tried MiraLAX yesterday but no bowel movement yet we going to give soapsuds enema today. Once stool sample available will check for C. difficile. 08/30/2018 patient has history of C. difficile but she did not had a bowel movement for the last 3 days. We tried soapsud enema, "MiraLAX and we going to try GoLYTELY today. 09/02/2018-patient has history of C. difficile she had a bowel movement yesterday. No diarrhea. Plan to check for C. difficile was stopped 09/03/2018 patient history of C. difficile. No episodes of diarrhea during this admission. (3) Acute renal failure Qualifiers: Acute renal failure type: unspecified Qualified Code(s): N17.9 - Acute kidney failure, unspecified Is this a current diagnosis for this admission?: Yes Plan: 08/27/2018-patient's baseline creatinine is around 2.45. Today it was 1.02. Most likely prerenal. She is getting IV fluids. Plan is to recheck the labs tomorrow. 08/28/2018-patient's admission creatinine is 2.42, today's creatinine is 0.96. Acute kidney injury which is prerenal is resolved. 08/29/2018-admission creatinine is 2.421 today creatinine was 1.03. Most likely prerenal is resolved with IV fluids. 08/30/2018 patient came in with high elevated creatinine 2.42 and latest creatin ine is 1.03 acute kidney injury most likely prerenal resolved with IV fluids. 08/31/2018 patient admitted with a serum creatinine of 2.4-1 today's creatinine is 0.98 acute kidney injury secondary to prerenal causes resolved. 09/01/2018 patient is admitted with creatinine of 2.42, and it was improved to 0.98. Acute renal failure secondary to prerenal causes resolved. 09/02/2018-patient admission creatinine is 2.42 on admission, latest creatinine is 0.98. Acute renal failure secondary to prerenal causes resolved. 09/03/2018-patient was admitted with creatinine of 2.42, latest creatinine is 1.0 6, acute kidney injury most likely prerenal is resolved. (4) Hyponatremia Is this a current diagnosis for this admission?: Yes Plan: 09/03/2018-serum sodium today is 127, it dropped from 134 yesterday plan is to repeat the labs to see if the abnormal result is accurate or not. Patient is asymptomatic. (5) Hyperkalemia Is this a current diagnosis for this admission?: Yes Plan: 09/03/2018-patient potassium level came back 5.4. Plan is to repeat the labs to see if it is accurate or not. - Time Time Spent with patient: 15-24 minutes Medications reviewed and adjusted accordingly: Yes
[2018-09-03] MEDS: LACTULOSE SYRUP 20 GM/30 ML UDCUP PO SCH (18:11)
[2018-09-03] MEDS: HYDROCODONE/ACETAMINOPHEN 10-325 MG TABLET PO PRN (21:47)
[2018-09-03] MEDS: FAMOTIDINE 20 MG TABLET PO SCH (21:47)
[2018-09-03] MEDS: ATORVASTATIN CALCIUM 40 MG TABLET PO SCH (21:47)
[2018-09-03] MEDS: SIMVASTATIN 10 MG TABLET PO SCH (21:47)
[2018-09-03] MEDS: NORMAL SALINE 1000 ML 1,000 ML IV PRN (22:57)
[2018-09-04] MEDS: GABAPENTIN 300 MG CAPSULE PO SCH ×3 (05:21→22:33)
[2018-09-04] MEDS: HYDROXYZINE PAMOATE 50 MG CAPSULE PO SCH ×3 (05:21→22:33)
[2018-09-04] MEDS: HEPARIN SOD (PORCINE) 5,000 UNIT/ML 1 ML SYRINGE SUBCUT SCH ×3 (05:21→22:34)
[2018-09-04 05:37] LABS: ABSOLUTE BASOPHILS # (AUTO) 0.1 10^3/uL (0.0-0.2); ABSOLUTE EOSINOPHILS # (AUTO) 0.2 10^3/uL (0.0-0.6); ABSOLUTE MONOCYTES (AUTO) 0.6 10^3/uL (0.1-1.4); BASOPHILS % (AUTO) 0.9 % (0-2); HEMATOCRIT 39.1 % (36.0-47.0); HEMOGLOBIN 13.4 g/dL (12.0-15.5); LYMPHOCYTES % (AUTO) 30.2 % (13-45); MEAN CORPUSCULAR HEMOGLOBIN 28.5 pg (27.0-33.4); MEAN CORPUSCULAR HGB CONC 34.2 g/dL (32.0-36.0); MEAN CORPUSCULAR VOLUME 83 fl (80-97); PLATELET COUNT 332 10^3/uL (150-450); RED BLOOD COUNT 4.69 10^6/uL (3.72-5.28); RED CELL DISTRIBUTION WIDTH 14.4 % (11.5-14.0); SEGMENTED NEUTROPHILS % (AUTO) 60.9 % (42-78); TOTAL CELLS COUNTED % (AUTO) 100 %; WHITE BLOOD COUNT 9.9 10^3/uL (4.0-10.5)
[2018-09-04 05:57] LABS: ALANINE AMINOTRANSFERASE 43 U/L (9-52); ALBUMIN 4.7 g/dL (3.5-5.0); ALKALINE PHOSPHATASE 124 U/L (38-126); ANION GAP 15 (5-19); ASPARTATE AMINO TRANSFERASE 44 U/L (14-36); BILIRUBIN,DIRECT 0.3 mg/dL (0.0-0.4); BILIRUBIN,TOTAL 0.4 mg/dL (0.2-1.3); BLOOD UREA NITROGEN 23 mg/dL (7-20); CALCIUM 9.8 mg/dL (8.4-10.2); CARBON DIOXIDE 22 mmol/L (22-30); CHLORIDE 94 mmol/L (98-107); GLUCOSE 93 mg/dL (75-110); SODIUM 130.6 mmol/L (137-145); TOTAL PROTEIN 7.3 g/dL (6.3-8.2)
[2018-09-04 06:01] LABS: POTASSIUM 6.2 mmol/L (3.6-5.0)
[2018-09-04] MEDS: LACTULOSE SYRUP 20 GM/30 ML UDCUP PO SCH ×2 (09:36→17:02)
[2018-09-04] MEDS: FAMOTIDINE 20 MG TABLET PO SCH ×2 (09:37→22:33)
[2018-09-04] MEDS: CITALOPRAM HYDROBROMIDE 20 MG TABLET PO SCH (09:37)
[2018-09-04] MEDS: METOPROLOL TARTRATE 50 MG TABLET PO SCH (09:37)
[2018-09-04] MEDS: DOCUSATE SODIUM 100 MG CAPSULE PO SCH ×2 (09:37→17:03)
[2018-09-04] MEDS ORDERED: SODIUM POLYSTYRENE SULFONATE 15 GM/60 ML PO ONE (10:30)
--- NOTE | 2018-09-04 12:44 | PDOC PROGRESS REPORT ---
Subjective Progress Note for:: 09/04/18 Subjective:: Patient is seen resting in bed. She is awake, alert, oriented x3. She just completed physical therapy session. Therapist states she is much improved today. She initially thought she would need short-term rehab but now feels she can go home with home physical therapy. Patient states she is feeling much better today. She denies any chest pain, shortness of breath or dyspnea at rest. She denies any nausea, vomiting or abdominal pain. She denies any dysuria or diarrhea. She states she just had a bowel movement from the Kayexalate we gave her earlier. She denies any significant arthralgias or myalgias. She is anxious to go home. Remaining review of systems are negative. Reason For Visit: UTI, ABD PAIN Physical Exam Vital Signs: Temp Pulse Resp BP Pulse Ox 98.6 F 77 20 147/70 H 95 09/04/18 07:59 09/04/18 07:59 09/04/18 07:59 09/04/18 07:59 09/04/18 07:59 Intake & Output 09/03/18 09/04/18 09/05/18 06:59 06:59 06:59 Intake Total 2234 947 Balance 2234 947 Weight 98.5 kg 98.5 kg General appearance: PRESENT: no acute distress, obese, well-developed, well- nourished Head exam: PRESENT: atraumatic, normocephalic Eye exam: PRESENT: conjunctiva pink, EOMI, PERRLA. ABSENT: scleral icterus Ear exam: PRESENT: normal external ear exam Mouth exam: PRESENT: moist, tongue midline Neck exam: ABSENT: carotid bruit, JVD, lymphadenopathy, thyromegaly Respiratory exam: PRESENT: clear to auscultation christina. ABSENT: rales, rhonchi, wheezes Cardiovascular exam: PRESENT: RRR. ABSENT: diastolic murmur, rubs, systolic murmur Pulses: PRESENT: normal dorsalis pedis pul Vascular exam: PRESENT: normal capillary refill GI/Abdominal exam: PRESENT: normal bowel sounds, soft. ABSENT: distended, guarding, mass, organolmegaly, rebound, tenderness Rectal exam: PRESENT: deferred Extremities exam: PRESENT: full ROM. ABSENT: calf tenderness, clubbing, pedal edema Neurological exam: PRESENT: alert, awake, oriented to person, oriented to place, oriented to time, oriented to situation, CN II-XII grossly intact. ABSENT: motor sensory deficit Psychiatric exam: PRESENT: appropriate affect, normal mood. ABSENT: homicidal ideation, suicidal ideation Skin exam: PRESENT: dry, intact, warm. ABSENT: cyanosis, rash Results Laboratory Results: 09/04/18 04:03 09/04/18 04:03 09/03/18 09/04/18 09/04/18 15:01 04:03 04:03 WBC 9.9 RBC 4.69 Hgb 13.4 Hct 39.1 MCV 83 MCH 28.5 MCHC 34.2 RDW 14.4 H Plt Count 332 Seg Neutrophils % 60.9 Lymphocytes % 30.2 Monocytes % 6.0 Eosinophils % 2.0 Basophils % 0.9 Absolute Neutrophils 6.0 Absolute Lymphocytes 3.0 Absolute Monocytes 0.6 Absolute Eosinophils 0.2 Absolute Basophils 0.1 Sodium 127.7 L 130.6 L Potassium 5.8 H 6.2 H* Chloride 89 L 94 L Carbon Dioxide 23 22 Anion Gap 16 15 BUN 19 23 H Creatinine 1.16 1.33 H Est GFR ( Amer) 56 L 47 L Est GFR (Non-Af Amer) 46 L 39 L Glucose 87 93 Calcium 9.9 9.8 Magnesium 2.3 Total Bilirubin 0.3 0.4 AST 38 H 44 H ALT 48 43 Alkaline Phosphatase 113 124 Total Protein 7.3 7.3 Albumin 4.8 4.7 08/26/18 08/26/18 21:02 21:02 Creatine Kinase 63 CK-MB (CK-2) < 0.22 Troponin I < 0.012 Impressions: Chest X-Ray 08/26/18 21:26 IMPRESSION: No acute cardiopulmonary process copyright 2010 [employer]- All Rights Reserved Abdomen/Pelvis CT 08/26/18 23:11 IMPRESSION: Findings concerning for left-sided pyelonephritis. Correlate with patient history. TECHNICAL DOCUMENTATION: Quality ID # 436: Final reports with documentation of one or more dose reduction techniques (e.g., Automated exposure control, adjustment of the mA and/or kV according to patient size, use of iterative reconstruction technique) copyright 2011 [employer]- All Rights Reserved KUB X-Ray 08/29/18 08:00 IMPRESSION: NO RADIOGRAPHIC EVIDENCE FOR ACUTE ABDOMINAL DISEASE. Assessment & Plan - Diagnosis (1) Pyelonephritis Is this a current diagnosis for this admission?: Yes Plan: Patient has been treated with Bactrim. Cultures have resolved and are negative. Antibiotics were stopped. (2) Hyperkalemia Is this a current diagnosis for this admission?: Yes Plan: Potassium this morning was 6.2. Her creatinine is low normal. We will recheck potassium this afternoon. We did give her 1 dose of p.o. Kayexalate. Likely from the Bactrim. (3) Hyponatremia Is this a current diagnosis for this admission?: Yes Plan: Slowly improving. (4) Dehydration Is this a current diagnosis for this admission?: Yes Plan: This appears to be resolving. (5) History of Clostridium difficile colitis Is this a current diagnosis for this admission?: Yes Plan: Stool was negative. - Time Time Spent with patient: 25-34 minutes Total Critical Time (Minutes): 20 Medications reviewed and adjusted accordingly: Yes Anticipated discharge: Home with Homehealth - Inpatient Certification Based on my medical assessment, after consideration of the patient's comorb idities, presenting symptoms, or acuity I expect that the services needed warrant INPATIENT care.: Yes Medical Necessity: Need For IV Fluids, Need For Continuous Telemetry Monitoring, Risk of Complication if Not Cared For in Hospital
[2018-09-04] MEDS: NORMAL SALINE 1000 ML 1,000 ML IV PRN (19:05)
[2018-09-04] MEDS: ATORVASTATIN CALCIUM 40 MG TABLET PO SCH (22:33)
[2018-09-04] MEDS: SIMVASTATIN 10 MG TABLET PO SCH (22:34)
[2018-09-04] MEDS: ACETAMINOPHEN 325 MG TABLET PO PRN (22:34)
[2018-09-05 05:02] LABS: ABSOLUTE BASOPHILS # (AUTO) 0.1 10^3/uL (0.0-0.2); ABSOLUTE EOSINOPHILS # (AUTO) 0.1 10^3/uL (0.0-0.6); ABSOLUTE LYMPHOCYTES (AUTO) 4.1 10^3/uL (0.5-4.7); ABSOLUTE MONOCYTES (AUTO) 0.9 10^3/uL (0.1-1.4); ABSOLUTE NEUT (AUTO) 7.3 10^3/uL (1.7-8.2); BASOPHILS % (AUTO) 0.4 % (0-2); EOSINOPHILS % (AUTO) 1.2 % (0-6); HEMATOCRIT 38.5 % (36.0-47.0); HEMOGLOBIN 12.9 g/dL (12.0-15.5); LYMPHOCYTES % (AUTO) 32.7 % (13-45); MEAN CORPUSCULAR HGB CONC 33.4 g/dL (32.0-36.0); MEAN CORPUSCULAR VOLUME 84 fl (80-97); MONOCYTES % (AUTO) 6.9 % (3-13); PLATELET COUNT 277 10^3/uL (150-450); SEGMENTED NEUTROPHILS % (AUTO) 58.8 % (42-78); TOTAL CELLS COUNTED % (AUTO) 100 %; WHITE BLOOD COUNT 12.5 10^3/uL (4.0-10.5)
[2018-09-05 05:18] LABS: ANION GAP 12 (5-19); BLOOD UREA NITROGEN 24 mg/dL (7-20); CALCIUM 9.1 mg/dL (8.4-10.2); CARBON DIOXIDE 21 mmol/L (22-30); CHLORIDE 103 mmol/L (98-107); GLUCOSE 118 mg/dL (75-110); POTASSIUM 4.5 mmol/L (3.6-5.0); SODIUM 135.5 mmol/L (137-145)
[2018-09-05] MEDS: HEPARIN SOD (PORCINE) 5,000 UNIT/ML 1 ML SYRINGE SUBCUT SCH ×2 (06:10→13:53)
[2018-09-05] MEDS: HYDROXYZINE PAMOATE 50 MG CAPSULE PO SCH ×2 (06:11→13:53)
[2018-09-05] MEDS: GABAPENTIN 300 MG CAPSULE PO SCH ×2 (06:11→13:56)
[2018-09-05] MEDS: DOCUSATE SODIUM 100 MG CAPSULE PO SCH (10:30)
[2018-09-05] MEDS: LACTULOSE SYRUP 20 GM/30 ML UDCUP PO SCH (10:30)
[2018-09-05] MEDS: CITALOPRAM HYDROBROMIDE 20 MG TABLET PO SCH (10:32)
[2018-09-05] MEDS: METOPROLOL TARTRATE 50 MG TABLET PO SCH (10:32)
[2018-09-05] MEDS: FAMOTIDINE 20 MG TABLET PO SCH (10:33)
[2018-09-05 12:17] VITALS: BP 152/55
--- NOTE | 2018-09-05 14:01 | PDOC DISCHARGE SUMMARY ---
General - Admit/Disc Date/PCP Admission Date/Primary Care Provider: 08/27/18 01:11 TEZ CAMPOS MD Discharge Date: 09/05/18 - Discharge Diagnosis (1) Pyelonephritis Is this a current diagnosis for this admission?: Yes Summary: Antibiotics completed (2) Hyperkalemia Is this a current diagnosis for this admission?: Yes Summary: Resolved. Likely secondary to Bactrim and spironolactone (3) Hyponatremia Is this a current diagnosis for this admission?: Yes Summary: Resolved (4) Dehydration Is this a current diagnosis for this admission?: Yes Summary: Resolved (5) History of Clostridium difficile colitis Is this a current diagnosis for this admission?: Yes - Additional Information Resuscitation Status: Full Code Prescriptions: Ondansetron HCl [Zofran 4 mg Tablet] 1 - 2 tab PO Q4H PRN #10 tablet PRN Reason: Home Medications: Amlodipine Besylate [Norvasc 5 mg Tablet] 5 mg PO DAILY 08/27/18 Citalopram Hydrobromide [Celexa 20 mg Tablet] 20 mg PO DAILY 08/27/18 Estradiol 0.1 mg TOP Q7D 08/27/18 Gabapentin [Neurontin] 600 mg PO Q8 08/27/18 Hydrocodone/Acetaminophen [[place] 10-325 mg Tablet] 1 tab PO Q6HP PRN 08/27/18 Hydroxyzine Pamoate [Vistaril 50 mg Capsule] 50 mg PO TID 08/27/18 Meloxicam [Mobic] 15 mg PO DAILY 08/27/18 Metoprolol Tartrate [Lopressor 50 mg Tablet] 50 mg PO DAILY 08/27/18 Omeprazole 40 mg PO DAILY 08/27/18 Rosuvastatin Calcium [Crestor 20 mg Tablet] 20 mg PO QHS 08/27/18 Acetaminophen [Tylenol 325 mg Tablet] 650 mg PO Q4HP PRN tablet 09/05/18 Citalopram Hydrobromide [Celexa 20 mg Tablet] 20 mg PO DAILY tablet 09/05/18 Docusate Sodium [Colace 100 mg Capsule] 100 mg PO BID capsule 09/05/18 Magnesium Hydroxide [Milk of Magnesia 30 ml Udcup] 30 ml PO HSP PRN udc 09/05/18 Ondansetron HCl [Zofran 4 mg Tablet] 1 - 2 tab PO Q4H PRN #10 tablet 09/05/18 Spironolactone [Aldactone] 50 mg PO BID #0 09/05/18 History of Present Illness Patient complains of: Right sided abdominal pain History of Present Illness: BONILLA VAZQUEZ is a 73 year old female with a past medical history of hypertension, COPD, recurrent C. difficile colitis who presents with 48 hours of abdominal pain prompting evaluation at urgent care she was placed on Levaquin for urinary tract infection without significant improvement she reports the [facility] room findings leukocytosis and a CT abdomen pelvis notable for right- sided perinephric stranding suggestive of pyelonephritis. She is started on Rocephin and referred to the hospitalist for admission. Patient admits subjective fever, abdominal pain, polyuria and a single episode of diarrhea. Hospital Course Hospital Course: Patient was admitted to the hospitalist service on telemetry. She was started on IV hydration and continued with IV ceftriazone. Blood cultures x 2 and urine cultures were done. She continued to have nausea for the first 2 days of her hospitalization. She was given IV antiemetics with improvement of her symptoms. She had problems with constipation. She was placed on oral bactrim after blood cultures remained negative at 48hrs. This was continued until urine culture grew no organisms and was stopped. She had hyperkalemia with a potassium of 6.2 requiring a dose of kayexylate. She was seen in consult by physical therapy who initially thought she needed short term rehab, but then quickly improved and feel she would do well with home physical therapy. Today she feels well labs have improved. She is eating and drinking well. She is ready for discharge Physical Exam Vital Signs: Temp Pulse Resp BP Pulse Ox 98 F 66 13 140/57 H 95 09/05/18 08:00 09/05/18 08:00 09/05/18 08:00 09/05/18 08:00 09/05/18 08:00 Intake & Output 09/04/18 09/05/18 09/06/18 06:59 06:59 06:59 Intake Total 947 1743 Balance 947 1743 Weight 98.5 kg 98.5 kg General appearance: PRESENT: no acute distress, well-developed, well-nourished Head exam: PRESENT: atraumatic, normocephalic Eye exam: PRESENT: conjunctiva pink, EOMI, PERRLA. ABSENT: scleral icterus Ear exam: PRESENT: normal external ear exam Mouth exam: PRESENT: moist, tongue midline Neck exam: ABSENT: carotid bruit, JVD, lymphadenopathy, thyromegaly Respiratory exam: PRESENT: clear to auscultation christina. ABSENT: rales, rhonchi, wheezes Cardiovascular exam: PRESENT: RRR. ABSENT: diastolic murmur, rubs, systolic murmur Pulses: PRESENT: normal dorsalis pedis pul Vascular exam: PRESENT: normal capillary refill GI/Abdominal exam: PRESENT: normal bowel sounds, soft. ABSENT: distended, guarding, mass, organolmegaly, rebound, tenderness Rectal exam: PRESENT: deferred Extremities exam: PRESENT: full ROM. ABSENT: calf tenderness, clubbing, pedal edema Neurological exam: PRESENT: alert, awake, oriented to person, oriented to place, oriented to time, oriented to situation, CN II-XII grossly intact. ABSENT: motor sensory deficit Psychiatric exam: PRESENT: appropriate affect, normal mood. ABSENT: homicidal ideation, suicidal ideation Skin exam: PRESENT: dry, intact, warm. ABSENT: cyanosis, rash Results Laboratory Results: 09/05/18 04:04 09/05/18 04:04 09/04/18 09/05/18 09/05/18 14:02 04:04 04:04 WBC 12.5 H RBC 4.60 Hgb 12.9 Hct 38.5 MCV 84 MCH 28.0 MCHC 33.4 RDW 14.0 Plt Count 277 Seg Neutrophils % 58.8 Lymphocytes % 32.7 Monocytes % 6.9 Eosinophils % 1.2 Basophils % 0.4 Absolute Neutrophils 7.3 Absolute Lymphocytes 4.1 Absolute Monocytes 0.9 Absolute Eosinophils 0.1 Absolute Basophils 0.1 Sodium 135.5 L Potassium 5.1 H D 4.5 Chloride 103 Carbon Dioxide 21 L Anion Gap 12 BUN 24 H Creatinine 1.03 Est GFR ( Amer) > 60 Est GFR (Non-Af Amer) 53 L Glucose 118 H Calcium 9.1 08/26/18 08/26/18 21:02 21:02 Creatine Kinase 63 CK-MB (CK-2) < 0.22 Troponin I < 0.012 Impressions: Chest X-Ray 08/26/18 21:26 IMPRESSION: No acute cardiopulmonary process copyright 2011 [employer]- All Rights Reserved Abdomen/Pelvis CT 08/26/18 23:11 IMPRESSION: Findings concerning for left-sided pyelonephritis. Correlate with patient history. TECHNICAL DOCUMENTATION: Quality ID # 436: Final reports with documentation of one or more dose reduction techniques (e.g., Automated exposure control, adjustment of the mA and/or kV according to patient size, use of iterative reconstruction technique) copyright 2010 [employer]- All Rights Reserved KUB X-Ray 08/29/18 08:00 IMPRESSION: NO RADIOGRAPHIC EVIDENCE FOR ACUTE ABDOMINAL DISEASE. Qualifiers - * PATIENT BEING DISCHARGED WITH ANY OF THE FOLLOWING DIAGNOSIS: No Plan Discharge Plan: Home with physical therapy Time Spent: Less than 30 Minutes
[2018-09-08] MEDS ORDERED: ESTRADIOL 0.1 MG/24 HR PATCH.TDWK TD SCH (10:00)
--- NOTE | 2018-09-19 13:33 | Progress Note ---
Provider Note Provider Note: Patient had acute, nonobstructive pyelonephritis treated with IV antibiotics and hydrationi
== END 2018-09-05 14:51 | disposition home or self-care (01) | DRG 690 ==
LOC: ER 20:34 → EH 08-27 01:11 → 5 08-27 12:19
PROVIDERS: ADMIT Internal Medicine; ATTEND Internal Medicine
DX: N10 Acute pyelonephritis (principal); E87.1 Hypo-osmolality and hyponatremia; N17.9 Acute kidney failure, unspecified; E86.0 Dehydration; E87.5 Hyperkalemia; I10 Essential (primary) hypertension; J44.9 Chronic obstructive pulmonary disease, unspecified; Z86.19 Personal history of other infectious and parasitic diseases; K59.00 Constipation, unspecified; Z82.49 Family history of ischemic heart disease and other diseases of the circulatory system; Z88.8 Allergy status to other drugs, medicaments and biological substances
CPT/HCPCS: 36415; 71045; 74018; 74177; 80048; 80053; 81001; 82550; 82553; 82962; 83690; 83735; 84132; 84484; 85025; 87040; 87086; 87493; 93005; 93010; 96365; 96375; 99285; J0696; J1170; J1644; J1885; J2405; J2550; J3490; J7030; J7060